=== PATIENT | male | born 1940 | race Caucasian/White ===

== ENCOUNTER 2019-03-24 15:14 | Emergency (ER) | payer OTHER, SELFPAY ==
[2019-03-24 15:18] VITALS: BP 114/73; PULSE 70; RESP 16; TEMP 36.7; O2SAT 98
--- NOTE | 2019-03-24 15:45 | ED.GENADUL_ITS ---
Discharge Plan Disposition Patient Disposition: HOME Condition: Good Discharge Details Chief Complaint: Urinary Clinical Impression: Ureterolithiasis, Hematuria Primary Care Provider: Satya Menendez ED Provider: Stacey Lujan Home Meds and New Rx's Prescriptions: New tamsulosin [Flomax] 0.4 mg capsule 0.4 mg PO DAILY Qty: 7 RF: 0 Continued cyanocobalamin (vitamin B-12) [Vitamin B-12] 1,000 MCG tablet 1,000 mcg PO DAILY Qty: 1 RF: 0 glimpride 4 mg PO DAILY Qty: 1 RF: 0 losartan 50 MG tablet 1 tab PO DAILY Qty: 30 RF: 1 multivitamin [Multi-Day] 1 EACH tablet 1 tab PO DAILY RF: 0 omeprazole 40 MG capsule,delayed release(DR/EC) 1 tab PO DAILY RF: 0 aspirin [Aspir-81] 81 MG tablet,delayed release (DR/EC) 1 tab PO DAILY RF: 0 metformin [Glucophage] 1,000 MG tablet 1 tab PO DAILY RF: 0 gabapentin 300 MG capsule 600 tab PO DAILY RF: 0 metoprolol tartrate 25 MG tablet 1 tab PO DAILY RF: 0 glucosamine sulfate 2KCl 1,000 MG tablet 1 tab PO DAILY RF: 0 No Action rivaroxaban 20 mg Tablet 20 mg PO QPM RF: 0 Discharge Instructions Instructions: Kidney Stones (ED), Hematuria (ED), How to Strain Your Urine (ED) Additional Instructions: Use the strainer to observe when and if you pass the stone. Take the Flomax daily as directed. Hold your Xarelto dose on Thursday night. Call urology Dr. Macias on Thursday to schedule a follow-up appointment for reevaluation. Return to the emergency department if you develop any worsening or new concerning symptoms. Referrals: Rajiv Macias MD [ [facility] STAFF PHYSICIAN] - Discharge Data Discharge Date/Time-TO BE ENTERED AT DEPARTURE: 03/24/19 18:35 Discharge Physician: Stacey Lujan Medical Decision Making 78yo M w/ c/o blood in urine since this morning. Also c/o intermittent L groin pain x several months. Pt on asa and Xarelto. Vitals within normal limits. Appears nontoxic. exam normal. No CVAT. Abdomen nontender. Differential diagoses includes UTI, kidney stone, interstitial cystitis, medication related to anticoagulation. Will place an IV, check screening labs, ua, ct r/o renal stone and give bolus ivf. Pt declining any pain meds at this time. 1700 -- labs and imaging reviewed - WBC and renal function within normal limits. Hgb 12.9. UA notes large blood, negative leukocyte esterase and nitrite. CT notes 3mm L UVJ calculus, mild hydronephrosis. Case d/w Dr. Macias - recommends pt hold his xarelto dose prior to Thursday in case of plan for stent and pt to call their office on Thursday am for follow up. Will send pt home with delilah castillo. He declines narcotic pain meds. Instructed to take tylenol prn pain. Instructed to return to the ER with any worsening symptoms. Medical Records Medical records reviewed: Yes I reviewed the patient's medical records. Imaging Data Radiologic Study: Radiologist's impression: CT Abdomen and Pelvis Without Contrast EXAM DATE/TIME: 03/24/2019 3:51 PM CLINICAL HISTORY: 78 years old, male; Other: Hematuria x this am; Other: Lt groin pain TECHNIQUE: Imaging protocol: Axial computed tomography images of the abdomen and pelvis without contrast. Coronal and sagittal reformatted images were created and reviewed. Radiation optimization: All CT scans at this facility use at least one of these dose optimization techniques: automated exposure control; mA and/or kV adjustment per patient size (includes targeted exams where dose is matched to clinical indication); or iterative reconstruction. COMPARISON: No relevant prior studies available. FINDINGS: Liver: Small cysts. Gallbladder and bile ducts: Normal. No calcified stones. No ductal dilation. Pancreas: No acute findings. No ductal dilation. Spleen: Normal. No splenomegaly. Adrenals: Normal. No mass. Kidneys and ureters: 3 mm calculus at the ureterovesical junction, minimal left hydronephrosis and perinephric edema. Small bilateral renal calculi. Stomach and bowel: Normal. No obstruction. No mucosal thickening. Appendix: No evidence of appendicitis. Intraperitoneal space: Normal. No free air. No significant fluid collection. Vasculature: No abdominal aortic aneurysm. Lymph nodes: No significant adenopathy. Bladder: Unremarkable as visualized. Reproductive: Unremarkable as visualized. Bones/joints: No acute fracture. No dislocation. Soft tissues: Unremarkable. IMPRESSION: 3 mm left UVJ calculus, left hydronephrosis. Bilateral nephrolithiasis. Lab Data Lab results reviewed: Yes I reviewed the patient's lab results. 03/24/19 15:30 Urine - Reflex from Ua Urine Culture - Final Gram Positive [facility] Tests Range/Units 03/24/19 03/24/19 03/24/19 15:30 16:45 16:45 WBC (4.4-10.8) k/cumm 6.95 RBC (4.50-6.00) m/cumm 4.01 L Hgb (13.5-17.5) g/dL 12.9 L Hct (40.0-50.0) % 38.4 L MCV (80-95) fL 95.8 H MCH (27.0-33.0) pg 32.2 MCHC (32.0-36.0) g/dL 33.6 RDW (11.8-14.1) % 12.1 Plt Count (130-400) x1000/uL 203 MPV (8.0-11.0) fL 9.6 Immature Gran % 0.3 Neutrophils % 54.5 Lymphocytes % 31.4 Monocytes % 11.1 Eosinophils % 2.3 Basophils % 0.4 Absolute Neutrophils (1.2-6.7) k/cumm 3.79 Absolute Lymphocytes (1.2-3.4) k/cumm 2.18 Absolute Monocytes (0.11-0.7) k/cumm 0.77 H Absolute Eosinophils (0.0-0.7) k/cumm 0.16 Absolute Basophils (0.0-0.2) k/cumm 0.03 Sodium (136-145) mmol/L 142 Potassium (3.5-5.1) mmol/L 3.8 Chloride (98-107) mmol/L 107 Carbon Dioxide (21.0-32.0) mmol/L 22.5 Anion Gap (3-11) mmol/L 12.5 H BUN (7-18) mg/dL 19 H Creatinine (0.70-1.30) mg/dL 1.12 Estimated GFR/1.73 m2 (mL/min/1.73m2) >= 60.00 Glucose (70-100) mg/dL 94 Calcium (8.5-10.1) mg/dL 9.3 Urine Color (Yellow) Brown Urine Clarity (Clear) Cloudy Urine pH (5-8) 5.5 Ur Specific [place] (1.005-1.025) 1.025 Urine Protein (Negative) mg/dL >=300 H Urine Ketones (Negative) mg/dL Trace H Urine Blood (Negative) Large H Urine Nitrite (Negative) Negative Urine Bilirubin (Negative) Small H Urine Urobilinogen (Up TO 0.2) EU/dL 0.2 Ur Leukocyte Esterase (Negative) Negative Urine RBC (0-2) >50 H Urine WBC Not Applicable Ur Epithelial Cells Not Applicable Urine Crystals Not Applicable Urine Bacteria Not Applicable Urine Mucus Not Applicable Ur Culture Indicated? Yes Urine Glucose (Negative) mg/dL Negative HPI General Mode of arrival: ambulatory . Date/Time Provider Initiated Documentation: 03/24/19 15:18 . Limitations to Documentation: no limitations . Information obtained by: patient . HPI Narrative: Pt is a 78yo M who presents to the ED w/ a c/o blood in urine since this morning. Patient states it was noted to be right red blood and then this afternoon appears brown. Patient denies any fever, nausea, vomiting, abdominal pain, back pain, dysuria, frequency or urgency. He does have intermittent left groin pain for the past several months but denies any at present. He denies any known injury. Patient does take aspirin and Xarelto for his history of cardiac disease/stent placement. Patient states he had been taking Plavix but this was changed to Xarelto 2 years ago. Related Data Home Medications Medication Instructions Recorded Confirmed aspirin [Aspir-81] 1 tab PO DAILY 02/07/16 03/24/19 gabapentin 600 tab PO DAILY 02/07/16 03/24/19 glucosamine sulfate 2KCl 1 tab PO DAILY 02/07/16 03/24/19 metformin [Glucophage] 1 tab PO DAILY 02/07/16 03/24/19 metoprolol tartrate 1 tab PO DAILY 02/07/16 03/24/19 multivitamin [Multi-Day] 1 tab PO DAILY 02/07/16 03/24/19 omeprazole 1 tab PO DAILY 02/07/16 03/24/19 Glimpride 4 mg PO DAILY #1 06/11/16 03/24/19 cyanocobalamin (vitamin B-12) 1,000 mcg PO DAILY #1 06/11/16 03/24/19 [Vitamin B-12] losartan 1 tab PO DAILY #30 tab-cap 06/11/16 03/24/19 rivaroxaban 20 mg PO QPM 03/24/19 03/24/19 tamsulosin [Flomax] 0.4 mg PO DAILY #7 cap 03/24/19 Previous Rx's Medication Instructions Recorded tamsulosin [Flomax] 0.4 mg PO DAILY #7 cap 03/24/19 Allergies Allergy/AdvReac Type Severity Reaction Status Date / Time No Known Allergies Allergy Unverified 03/24/19 15:23 General Stated Complaint: Urinary KAREEM: 3 Review of Systems Review of Systems All systems reviewed & are unremarkable except as noted in HPI and below Constitutional Reports as per HPI, Denies chills and Denies fever(s) Eyes Denies blurry vision ENT Denies dizziness, Denies sore throat and Denies throat swelling Cardiovascular Denies chest pain and Denies dyspnea Respiratory Denies cough and Denies dyspnea Gastrointestinal Denies abdominal pain, Denies diarrhea and Denies vomiting Genitourinary Denies hematuria and Denies dysuria Musculoskeletal Denies back pain and Denies numbness Integumentary/Breasts Denies lesions and Denies rash Neurologic Denies dizziness, Denies focal weakness and Denies numbness Allergic/Immunologic Denies throat swelling PFSH Medical History Diabetes (Chronic) HTN (hypertension) (Chronic) Myocardial infarction (Chronic) Surgical History Appendectomy cardiac stent Cholecystectomy Open Carpal Tunnel release (~2011) Social History Smoking/Tobacco Use Status: Former Tobacco Use Alcohol Intake: current Alcohol Intake frequency: a few times a month Drug use: Never Substance use type: does not use Do you feel safe at home: Yes Do you feel safe in your relationship?: Yes Exam Const General: cooperative, healthy appearing and no acute distress HENMT Head: normal to inspection Face and sinus: normal facial exam Eyes General: appearance normal, both eyes and all related structures Pupils: PERRL EOM: EOM intact bilaterally Neck Neck: normal visual inspection and No submandibular swelling Lymphatic: no lymphadenopathy noted Chest Chest: normal inspection of the chest and no tenderness Resp Effort & Inspection: normal respiratory effort and able to speak in complete sentences Auscultation: clear to auscultation bilaterally Cardio Rate: regular rate Rhythm: regular rhythm GI Inspection: normal to inspection Palpation: soft, not firm, not rigid and nontender Auscultation: normal bowel sounds Male General Exam: Yes normal external exam Penis: normal penis Meatus: meatus normal Scrotum: scrotum normal Testes: normal Back/Spine/Pelvis Back: no CVA tenderness Thoracic/Lumbar Spine: thoracic and lumbar spine normal to inspection Pelvis: no pain with anterior-posterior compression Skin General skin exam: no rashes or lesions noted Neuro General: alert, awake and oriented x3 Cognition: normal cognition Speech: speech normal Motor: muscle tone normal throughout Sensory Exam: no sensory deficits noted Extrem General: normal to inspection, full ROM, normal capillary refill, no calf tenderness bilaterally and no edema Psych Appearance: grossly normal Mental Status: mental status grossly normal Speech and Movement: speech and movement normal Affect: normal affect Course Vital Signs Temperature 98.1 F 03/24/19 15:18 Pulse 70 03/24/19 15:18 Respiratory Rate 16 03/24/19 15:18 Blood Pressure 114/73 03/24/19 15:18 Pulse Oximetry 98 03/24/19 15:18 Temperature 98.1 F 03/24/19 15:18 Temperature Source Skin 03/24/19 15:18 Pulse 70 03/24/19 15:18 Respiratory Rate 16 03/24/19 15:18 Respiratory Effort Non-Labored 03/24/19 15:22 Blood Pressure 114/73 03/24/19 15:18 Blood Pressure Position Sitting 03/24/19 15:18 Pulse Oximetry 98 03/24/19 15:18 Oxygen Delivery Method Room Air 03/24/19 15:18 Oxygen Flow Rate 0 03/24/19 15:18 Pain Level 2 03/24/19 15:37
--- NOTE | 2019-03-24 15:47 | DI.CT_ITS ---
SYMPTOM/DIAGNOSIS: LT GROIN PAIN, HEMATURIA, R/O ACUTE PROCESS RENAL COLIC CT SCAN: No priors. Routine examination was performed. The lung bases are clear. Lack of contrast does limit examination of the abdominal and pelvic organs. There are hypodense lesions seen in the liver. They are too small for further characterization on this noncontrast examination but likely reflects cysts. The gallbladder is negative. There is no biliary ductal dilatation. The unenhanced pancreas, spleen and adrenal glands are unremarkable. There is a 3 mm calculus at the left ureterovesical junction with mild hydronephrosis and hydroureter. There are bilateral nonobstructing stones present. There are cortical hypodensities seen in the kidneys bilaterally likely reflecting cysts. The urinary bladder is intact. The reproductive organs are unremarkable. The abdominal aorta is of normal caliber. No significant abdominal or pelvic adenopathy, ascites or pneumoperitoneum is seen. There is a fat containing left inguinal hernia. The bowel shows no evidence of obstruction or inflammation. The appendix is not visualized but no right lower quadrant inflammatory process is seen. Moderately severe degenerative changes are present in the spine. There is a right convex scoliotic curvature of the lumbar spine. IMPRESSION: 3 mm left UVJ calculus causing mild hydronephrosis.
[2019-03-24 16:07] LABS: Bilirubin Small (Negative); Blood Large (Negative); Clarity Cloudy (Clear); Glucose Negative (Negative); Ketones Trace mg/dL (Negative); Leukocyte Esterase Negative (Negative); Nitrite Negative (Negative); Specific Gravity 1.025 (1.005-1.025); Urobilinogen 0.2 EU/dL (Up TO 0.2); pH 5.5 (5-8)
--- NOTE | 2019-03-24 16:22 | DI.VRAD_ITS ---
EXAM: CT Abdomen and Pelvis Without Contrast EXAM DATE/TIME: 03/24/2019 3:51 PM CLINICAL HISTORY: 78 years old, male; Other: Hematuria x this am; Other: Lt groin pain TECHNIQUE: Imaging protocol: Axial computed tomography images of the abdomen and pelvis without contrast. Coronal and sagittal reformatted images were created and reviewed. Radiation optimization: All CT scans at this facility use at least one of these dose optimization techniques: automated exposure control; mA and/or kV adjustment per patient size (includes targeted exams where dose is matched to clinical indication); or iterative reconstruction. COMPARISON: No relevant prior studies available. FINDINGS: Liver: Small cysts. Gallbladder and bile ducts: Normal. No calcified stones. No ductal dilation. Pancreas: No acute findings. No ductal dilation. Spleen: Normal. No splenomegaly. Adrenals: Normal. No mass. Kidneys and ureters: 3 mm calculus at the ureterovesical junction, minimal left hydronephrosis and perinephric edema. Small bilateral renal calculi. Stomach and bowel: Normal. No obstruction. No mucosal thickening. Appendix: No evidence of appendicitis. Intraperitoneal space: Normal. No free air. No significant fluid collection. Vasculature: No abdominal aortic aneurysm. Lymph nodes: No significant adenopathy. Bladder: Unremarkable as visualized. Reproductive: Unremarkable as visualized. Bones/joints: No acute fracture. No dislocation. Soft tissues: Unremarkable. IMPRESSION: 3 mm left UVJ calculus, left hydronephrosis. Bilateral nephrolithiasis. Dictated and Authenticated by: Mark Singleton MD. Ordering:JESUS Ibarra MD
[2019-03-24 16:34] LABS: RBC >50 (0-2)
[2019-03-24 16:35] LABS: C & S Indicated? Yes
[2019-03-24] MEDS: Normal Saline 500 ML IV (16:45)
[2019-03-24 17:31] LABS: Anion Gap 12.5 mmol/L (3-11); BUN 19 mg/dL (7-18); CO2 22.5 mmol/L (21.0-32.0); CREATININE 1.12 mg/dL (0.70-1.30); Calcium 9.3 mg/dL (8.5-10.1); Chloride 107 mmol/L (98-107); Glucose 94 mg/dL (70-100); Potassium 3.8 mmol/L (3.5-5.1); Sodium 142 mmol/L (136-145)
[2019-03-24 17:40] LABS: Abs Immature Grans 0.02 k/cumm (0.0-0.09); Absolute Basophil Count 0.03 k/cumm (0.0-0.2); Absolute Eosinophil Count 0.16 k/cumm (0.0-0.7); Absolute Lymphocyte Count 2.18 k/cumm (1.2-3.4); Absolute Monocyte Count 0.77 k/cumm (0.11-0.7); Absolute Neutrophil Count 3.79 k/cumm (1.2-6.7); Basophils % 0.4; Eosinophils % 2.3; HCT 38.4 % (40.0-50.0); HGB 12.9 g/dL (13.5-17.5); Immature Grans % 0.3; Lymphocytes % 31.4; Mean Corp. HGB Concentration 33.6 g/dL (32.0-36.0); Mean Corpuscular Hemoglobin 32.2 pg (27.0-33.0); Mean Corpuscular Volume 95.8 fL (80-95); Mean Platelet Volume 9.6 fL (8.0-11.0); Monocytes % 11.1; Neutrophils % 54.5; Platelet Count 203 x1000/uL (130-400); RBC 4.01 m/cumm (4.50-6.00); RBC Distribution Width 12.1 % (11.8-14.1); White Blood Cell Count 6.95 k/cumm (4.4-10.8)
[2019-03-24 17:55] VITALS: BP 133/81; PULSE 63; RESP 18; TEMP 36.6; O2SAT 98
--- NOTE | 2019-03-24 17:58 | NUR.NOTE ---
patient sitting comfortably, IV site wnlNursing Note:
--- NOTE | 2019-03-24 18:16 | NUR.NOTE ---
Nursing Note: [facility], Dr. Macias for follow up. Consulted with Dr. Macias about this pt. Carmen Nolan.
[2019-03-24] MEDS: Tamsulosin 0.4 MG CAPCR PO (18:26)
[2019-03-24 18:35] VITALS: BP 133/81; PULSE 63; RESP 18; TEMP 36.6; O2SAT 98
== END 2019-03-24 18:35 | disposition home or self-care (01) ==
PROVIDERS: Emergency Provider Physician Assistant; PCP Family Medicine
DX: R31.9 Hematuria, unspecified (principal); N20.1 Calculus of ureter; R10.32 Left lower quadrant pain; Z79.01 Long term (current) use of anticoagulants; Z95.5 Presence of coronary angioplasty implant and graft; I25.10 Atherosclerotic heart disease of native coronary artery without angina pectoris; E11.9 Type 2 diabetes mellitus without complications; Z79.84 Long term (current) use of oral hypoglycemic drugs; I10 Essential (primary) hypertension
CPT/HCPCS: 36415; 80048; 96360; 99284; 74176; 81003; 81015; 85025; 87086; 99285

== ENCOUNTER 2019-11-18 09:27 | Outpatient (CLI) | payer OTHER, SELFPAY ==
[2019-11-18 12:22] LABS: Calculated LDL 88 mg/dL (<100); Cholesterol 158 mg/dL (<200); HDL Cholesterol 36 mg/dL (40-60); Triglyceride 173 mg/dL (<150)
[2019-11-18 12:35] LABS: Hemoglobin A1C 6.9 % (3.8-5.6)
== END 2019-11-18 09:47 ==
PROVIDERS: PCP Family Medicine; Visit Provider Family Medicine
DX: E78.5 Hyperlipidemia, unspecified (principal); R73.9 Hyperglycemia, unspecified
CPT/HCPCS: 36415; 80061; 83036

== ENCOUNTER 2020-02-20 18:58 | Emergency (ER) | payer OTHER, SELFPAY ==
[2020-02-20 19:04] VITALS: BP 163/67; PULSE 70; RESP 18; TEMP 36.7; O2SAT 94
--- NOTE | 2020-02-20 19:46 | W.ED.GENAD ---
Discharge Plan Disposition Patient Disposition: HOME Condition: Stable Discharge Details Chief Complaint: RashLesion Clinical Impression: Tick bite Primary Care Provider: Satya Menendez ED Provider: Tyshawn Montez Home Meds and New Rx's Prescriptions: New doxycycline hyclate 100 mg tablet 200 mg PO ONCE Qty: 2 RF: 0 Continued magnesium oxide 500 mg capsule 500 mg PO BID Qty: 180 RF: 3 niacin 100 mg tablet 100 mg PO DAILY RF: 0 cyanocobalamin (vitamin B-12) [Vitamin B-12] 1,000 MCG tablet 1,000 mcg PO DAILY Qty: 1 RF: 0 glimepiride 4 mg tablet 4 mg PO BID Qty: 180 RF: 3 losartan 50 mg tablet 50 mg PO DAILY Qty: 90 RF: 3 metformin [Glucophage] 1,000 mg tablet 1,000 mg PO BID Qty: 180 RF: 3 metoprolol tartrate 25 mg tablet 25 mg PO BID Qty: 180 RF: 3 omeprazole 20 mg capsule,delayed release(DR/EC) 20 mg PO DAILY Qty: 90 RF: 3 rivaroxaban 20 mg tablet 20 mg PO QPM Qty: 90 RF: 3 (DME) blood sugar diagnostic [OneTouch Ultra Blue Test Strip] Strip See Rx Instructions .ROUTE .MEDSUPPLY Qty: 100 RF: 3 glucosamine sulfate 2KCl 1,000 MG tablet 1 tab PO DAILY RF: 0 Discharge Instructions Instructions: Tick Bite (ED) Additional Instructions: Doxycycline as directed. Keep the area clean and dry, you may apply antibiotic ointment. Please watch for new or worsening symptoms and return to the ER for any concerns. I do recommend that you contact your primary care provider tomorrow for prompt outpatient reevaluation Discharge Data Discharge Date/Time-TO BE ENTERED AT DEPARTURE: 02/20/20 20:00 Medical Decision Making Patient presents with what appears to be a dog tick stuck to his upper scrotum. Otherwise asymptomatic. Able to easily remove the entire tick including jaw using the tick remover tool. Discussed the case with Dr. Arango, will give a single one-time dose of 200 mg p.o. doxycycline. Patient comfortable this plan and has no additional questions or concerns. Medical Records Medical records reviewed: Yes I reviewed the patient's medical records. HPI General Mode of arrival: ambulatory. Date/Time Provider Initiated Documentation: 02/20/20 19:29. Limitations to Documentation: no limitations. Information obtained by: patient. HPI Narrative: 79-year-old gentleman with history of diabetes, hypertension, [place], cardiac stent, anticoagulation, presents for potential tick bite to his left groin. He noticed something on his upper scrotum over the past 4 days, initially thought it was a skin tag but then today noticed legs. He denies fever, skin rash, body aches. No additional questions or concerns. Denies pain or altered sensation. No urinary complaints Related Data Home Medications Medication Instructions Recorded Confirmed glucosamine sulfate 2KCl 1 tab PO DAILY 02/07/16 02/20/20 cyanocobalamin (vitamin B-12) 1,000 mcg PO DAILY #1 06/11/16 02/20/20 [Vitamin B-12] niacin 100 mg tablet 100 mg PO DAILY 05/17/19 02/20/20 glimepiride 4 mg tablet 4 mg PO BID #180 tab 07/01/19 02/20/20 losartan 50 mg tablet 50 mg PO DAILY #90 tab-cap 07/01/19 02/20/20 metformin 1,000 mg tablet 1,000 mg PO BID #180 tab 07/01/19 02/20/20 metoprolol tartrate 25 mg tablet 25 mg PO BID #180 tab 07/01/19 02/20/20 omeprazole 20 mg capsule,delayed 20 mg PO DAILY #90 cap 07/01/19 02/20/20 release rivaroxaban 20 mg tablet 20 mg PO QPM #90 tab 09/28/19 02/20/20 magnesium oxide 500 mg capsule 500 mg PO BID #180 cap 10/04/19 02/20/20 blood sugar diagnostic #100 each 10/24/19 02/20/20 doxycycline hyclate 200 mg PO ONCE #2 tab 02/20/20 Previous Rx's Medication Instructions Recorded glimepiride 4 mg tablet 4 mg PO BID #180 tab 07/01/19 losartan 50 mg tablet 50 mg PO DAILY #90 tab-cap 07/01/19 metformin 1,000 mg tablet 1,000 mg PO BID #180 tab 07/01/19 metoprolol tartrate 25 mg tablet 25 mg PO BID #180 tab 07/01/19 omeprazole 20 mg capsule,delayed 20 mg PO DAILY #90 cap 07/01/19 release rivaroxaban 20 mg tablet 20 mg PO QPM #90 tab 09/28/19 magnesium oxide 500 mg capsule 500 mg PO BID #180 cap 10/04/19 blood sugar diagnostic #100 each 10/24/19 doxycycline hyclate 200 mg PO ONCE #2 tab 02/20/20 Allergies Allergy/AdvReac Type Severity Reaction Status Date / Time gabapentin AdvReac Severe Severe Verified 02/20/20 19:08 confusion Eixwhfu-Vnv-Cyd Reductase AdvReac Severe Muscle and Verified 02/20/20 19:08 Inhibitor joint pain tetanus and diphtheria AdvReac Severe Confused Verified 02/20/20 19:08 toxoids General Stated Complaint: RashLesion KAREEM: 4 Review of Systems Constitutional Constitutional: Denies fatigue, Denies fever(s) and Denies weakness Cardiovascular Cardiovascular: Denies chest pain and Denies dyspnea Respiratory Respiratory: Denies cough and Denies dyspnea Gastrointestinal Gastrointestinal: Denies abdominal pain, Denies nausea and Denies vomiting Genitourinary Genitourinary: Denies genital pain, Denies dysuria and Denies testicular pain Musculoskeletal Musculoskeletal: Denies numbness and Denies tingling Integumentary/Breasts Skin/Breast: Denies rash Neurologic Neurologic: Denies numbness, Denies tingling and Denies weakness Endocrine Endocrine: Denies fatigue Hematologic/Lymphatic Hematologic/Lymphatic: Reports easy bleeding and Reports easy bruising [facility] Medical History Diabetes (Chronic) Diabetic neuropathy, type II diabetes mellitus (Acute) HTN (hypertension) (Chronic) Leg cramps (Acute) Myocardial infarction (Chronic) Surgical History Appendectomy cardiac stent Cholecystectomy Open Carpal Tunnel release (~2011) Family History Mother No problems noted. Father No problems noted. Son No problems noted. Son No problems noted. Social History Smoking/Tobacco Use Status: Former Tobacco Use Tobacco: How many years used: 50 Alcohol Intake: current Alcohol Intake frequency: a few times a month Alcohol type: beer and hard liquor Drug use: Never Substance use type: does not use Caregiver/Support person: Yes Household members: spouse Housing: house Communication Needs: Hard of Hearing Do you need help understanding health information?: Often Pets and animals: No Sexually active: Yes Do you think of yourself as: straight/heterosexual Current gender identity: male What is your relationship status?: How often do you talk on the phone with friends or family?: once per week How often do you get together with friends or relatives?: once per week How often do you attend yazdanism or hoahaoism services?: decline to answer Do you belong to any clubs or organized social groups?: yes Panel score (0-1 are the most socially isolated patients): 2 What type of physical activity do you participate in: decline to answer Duration: decline to answer Frequency: decline to answer Kady/Yazdanism: Zoroastrianism Special kady needs: No Seatbelt use: always Do you feel safe at home: Yes Do you feel safe in your relationship?: Yes Exam Const General: cooperative, healthy appearing, comfortable and no acute distress Orientation: alert and awake HENMT Head: normal to inspection, normocephalic and atraumatic Mouth: moist mucous membranes Eyes Conjunctivae: conjunctivae normal Neck Neck: normal visual inspection, trachea midline and supple Resp Effort & Inspection: normal respiratory effort and able to speak in complete sentences Cardio Rate: regular rate Rhythm: regular rhythm GI Palpation: soft and nontender Male genitals images: 1. Appears to be an engorged, intact dog tick. No erythema. No drainage. Skin General skin exam: no rashes or lesions noted Neuro General: patient alert, patient awake, moves all extremities and no focal motor deficits Sensory Exam: no sensory deficits noted Psych Appearance: grossly normal Mental Status: mental status grossly normal Course Vital Signs Vital signs: Vital Signs Temperature 36.7 C 02/20/20 19:04 Pulse 70 02/20/20 19:04 Respiratory Rate 18 02/20/20 19:04 Blood Pressure 163/67 H 02/20/20 19:04 Pulse Oximetry 94 L 02/20/20 19:04 Temperature 36.7 C 02/20/20 19:04 Temperature Source Temporal Artery Scan 02/20/20 19:04 Pulse 70 02/20/20 19:04 Respiratory Rate 18 02/20/20 19:04 Respiratory Effort Non-Labored 02/20/20 19:08 Blood Pressure 163/67 H 02/20/20 19:04 Blood Pressure Position Sitting 02/20/20 19:04 Pulse Oximetry 94 L 02/20/20 19:04 Oxygen Delivery Method Room Air 02/20/20 19:04 Oxygen Flow Rate 0 02/20/20 19:04 Pain Level 0 02/20/20 19:04
[2020-02-20 20:01] VITALS: BP 163/67; PULSE 70; RESP 18; TEMP 36.7; O2SAT 94
[2020-02-20] MEDS: Doxycycline Hyclate 100 MG CAP (20:01)
== END 2020-02-20 20:00 | disposition home or self-care (01) ==
PROVIDERS: Emergency Provider Physician Assistant; PCP Family Medicine
DX: S30.863A Insect bite (nonvenomous) of scrotum and testes, initial encounter (principal); W57.XXXA Bitten or stung by nonvenomous insect and other nonvenomous arthropods, initial encounter
CPT/HCPCS: 99283

== ENCOUNTER → 2020-05-22 08:59 | Outpatient (BNVA) | payer OTHER, SELFPAY | PROVIDERS: PCP Family Medicine; Referring Provider Family Medicine; Visit Provider Surgery | DX: K40.90 Unilateral inguinal hernia, without obstruction or gangrene, not specified as recurrent (principal); I20.8 Other forms of angina pectoris; I48.0 Paroxysmal atrial fibrillation; Z11.59 Encounter for screening for other viral diseases; E11.42 Type 2 diabetes mellitus with diabetic polyneuropathy; I10 Essential (primary) hypertension | CPT/HCPCS: 99202; 99214 ==

== ENCOUNTER 2020-06-01 07:47 | Outpatient (CLI) | payer OTHER, SELFPAY ==
[2020-06-03 02:22] LABS: COVID-19 RT-PCR Result NEGATIVE (Negative)
== END 2020-06-01 08:07 ==
PROVIDERS: PCP Family Medicine; Visit Provider Surgery
DX: Z11.59 Encounter for screening for other viral diseases (principal); Z01.818 Encounter for other preprocedural examination
CPT/HCPCS: U0003

== ENCOUNTER 2020-06-06 08:51 | Day surgery (SDC) | payer OTHER, SELFPAY ==
--- NOTE | 2020-06-06 07:04 | ROE_ITS ---
Date of service: 06/06/20 Time of Service: 11:33 Operative Note Operative Note DATE OF PROCEDURE: 06/06/20 PRE-OP DIAGNOSIS: Left inguinal hernia POST-OP DIAGNOSIS: other (Direct and indirect hernia) PROCEDURE: left inguinal hernia repair with mesh SURGEON: Lorena Coronel MANUFACTURER REPRESENTATIVE: Dana Thomas ANESTHESIA: MAC (ASA 2/ Clem Novak CRNA) and regional ESTIMATED BLOOD LOSS: 25 PATHOLOGY: none sent COMPLICATIONS: None Patient was transported to: PACU Patient's condition: stable Implants: BARD Mesh LOT- [id number] REF- [id number] EXP 2024-10-04 Indications: 79 year old male with a reducible left inguinal hernia Reviewed anatomy and procedure P\\ Left inguinal hernia repair with mesh Risks, benefits and complications have been reviewed. Complications include but are not limited to bleeding, pain, infection, injury to underlying structures like bowel and adverse reaction to the medication. Questions were entertained and answered to their satisfaction and they wished to proceed. No guarantees were given or implied. Findings: Moderate sized indirect hernia and small directa hernia Procedure Description: After informed consent was obtained the patient was taken to the operating room and placed in a supine position. Monitors and SCDs were applied and a timeout was done. The patient's name, date of , procedure type, procedure site, allergies to medications, preoperative antibiotic, and DVT prophylaxis were all reviewed. Fire risk was assessed. Next anesthesia did a tap block on the left side under ultrasound guidance. Please see their separate documentation. Once anesthesia was done the abdomen was prepped and draped in a sterile surgical fashion. 1% lidocaine was injected into the dermis in the left lower quadrant. An incision was made with a 10 blade in the left lower quadrant. Dissection was done with cautery through the subcutaneous tissues and Cesar's fascia down to the external oblique fascia. The external ring was identified and the external oblique fascia was opened sharply through the external ring. The cut fascia was grasped with hemostats the cord structures were identified and a Holland drain was placed around them. The cremasteric muscle was dissected away from the cord structures using both cautery and blunt dissection. A hernia sac was identified and removed from the cord structures using blunt dissection. The hernia sac was opened. No bowel was within the hernia sac. The sac was then suture ligated and amputated. The remnant was pushed back into the peritoneum. There was a large tail of pre-peritoneal fat that was transected with cautery. What was left was reduced. A small direct hernia was identified. The ilio-inguinal nerve was identified and cut. A 6 x 6 piece of mesh was then cut in half. One half was cut into thirds and a plug was created. The plug was placed into the indirect defect and sutured to the internal oblique. The other half of the mesh was cut to size and attached to the lacunar ligament using a 2- 0 Prolene double armed suture. The mesh was secured laterally and medially with a 2-0 Prolene, with a running suture. The tails of the mesh were wrapped around the cord structures effectively cinching down the internal ring. Once the mesh was secured the tissues were irrigated with some normal saline. No bleeding was identified. The external oblique fascia was re-approximated using 2-0 Vicryl running suture. The Cesar's fascia was re-approximated using interrupted 3-0 Vicryl. The dermis was re-approximated with a running 4-0 Vicryl. The skin was cleaned and dried and skin affix was applied. The patient was woken up and taken back to recovery in stable condition. There were no immediate complications. Sponge, instrument and needle counts were correct at the end of the case x2.
--- NOTE | 2020-06-06 07:07 | W.PM.DSUDISC ---
Discharge Plan Disposition Patient Disposition: HOME Condition: Good Discharge Details Reason For Visit: Left inguinal hernia Attending Provider: Lorena Coronel Primary Care Provider: Satya Menendez Home Meds and New Rx's Prescriptions: New acetaminophen [Tylenol] 325 mg capsule 650 mg PO Q6H PRNQty: 30 RF: 0 Continued magnesium oxide 500 mg capsule 500 mg PO BID Qty: 180 RF: 3 niacin 100 mg tablet 100 mg PO DAILY RF: 0 cyanocobalamin (vitamin B-12) [Vitamin B-12] 1,000 MCG tablet 1,000 mcg PO DAILY Qty: 1 RF: 0 glimepiride 4 mg tablet 4 mg PO BID Qty: 180 RF: 3 losartan 50 mg tablet 50 mg PO DAILY Qty: 90 RF: 3 metformin [Glucophage] 1,000 mg tablet 1,000 mg PO BID Qty: 180 RF: 3 metoprolol tartrate 25 mg tablet 25 mg PO BID Qty: 180 RF: 3 omeprazole 20 mg capsule,delayed release(DR/EC) 20 mg PO DAILY Qty: 90 RF: 3 rivaroxaban 20 mg tablet 20 mg PO QPM Qty: 90 RF: 3 (DME) OneTouch Ultra Blue Test Strip Strip See Rx Instructions .ROUTE .MEDSUPPLY Qty: 100 RF: 3 glucosamine sulfate 2KCl 1,000 MG tablet 1 tab PO DAILY RF: 0 diphenhydramine-acetaminophen [Acetaminophen PM] 25-500 mg Tablet 2 tab PO HS PRNRF: 0 Discharge Instructions Additional Instructions: Activity at Home after surgery: 1. Make sure you walk outside at least 4 times per day 2. You should be able to climb a flight of stairs 3. No driving while in pain or taking pain medications 4. No strenuous activity or heavy lifting for 4 weeks Diet, Nutrition, & wound healin. Avoid alcohol until after you are recovered from your surgery 2. Make sure to eat plenty of lean protein (meat, fish, eggs, cottage cheese, beans) 3. Eat a variety of fruits and vegetables. Eat plenty of high fiber foods to avoid constipation. 4. Drink plenty of liquids to stay hydrated and avoid constipation Pain Medications: 1. Tylenol 650 mg every 6 hours 2. If a narcotic has been prescribed take as directed only for breakthrough pain For Constipation: 1. Take Milk of Magnesia or MiraLax as needed for constipation Home medications: Restart Rivaroxaban tomorrow morning Other: 1. You may shower daily. Do not scrub the incisions 2. Do not soak the incisions for 1 week 3. You may alternate ice and heat as needed for pain and swelling Wound Care: 1. Keep the incisions clean and dry Please call our office if you develop: 1. Fevers >101.5 2. Nausea or Vomiting 3. Worsening pain 4. Redness and thick discharge from the wounds If after hours please call the Hospital at and ask to speak to the on-call surgeon Referrals: Lorena Coronel MD [ [facility] STAFF PHYSICIAN] - Activity:: No lifting >20 lb x 4 weeks Remove Dressings/Wound Care:: Do Not Remove Shower/Bathe:: 24 hours Diet:: As Tolerated Discharge Orders Discharge Orders: Discharge Order (Routine); Ordered 06/06/20 Ordered By: Lorena Coronel
[2020-06-06 09:40] VITALS: BP 142/90; PULSE 55; RESP 14; TEMP 36.6; O2SAT 99
[2020-06-06] MEDS: Celecoxib 200 MG CAP PO (09:46)
[2020-06-06] MEDS: Acetaminophen 500 MG TAB 1000 MG PO (09:46)
[2020-06-06] MEDS: Lactated Ringers 1,000 ML 80 ML IV (10:00)
[2020-06-06] MEDS: ceFAZolin 2 GM/50 ML BAG IVPB (10:22)
[2020-06-06] MEDS: Bupivacaine LIPOSOME/PF 133 MG/10 ML VIAL IJ (10:30)
[2020-06-06] MEDS: Bupivacaine 0.25% Pres-Free 30 ML VIAL (10:30)
[2020-06-06] MEDS: Lidocaine 1% Multi-Dose 50 ML VIAL (10:53)
[2020-06-06 11:47] VITALS: BP 100/61; PULSE 59; RESP 16; TEMP 36.4; O2SAT 95
[2020-06-06 11:52] VITALS: BP 106/60; PULSE 60; RESP 15; TEMP 36.5; O2SAT 95
[2020-06-06 11:57] VITALS: BP 121/71; PULSE 61; RESP 18; TEMP 36.5; O2SAT 97
[2020-06-06 12:12] VITALS: BP 109/78; PULSE 58; RESP 15; TEMP 36.5; O2SAT 96
[2020-06-06 12:58] VITALS: BP 111/73; PULSE 58; RESP 16; TEMP 36; O2SAT 98
== END 2020-06-06 13:42 | disposition home or self-care (01) ==
LOC: SUR 08:51
PROVIDERS: PCP Family Medicine; Visit Provider Surgery
PROC: (CPT 49505; principal; 2020-06-06 10:15)
DX: K40.90 Unilateral inguinal hernia, without obstruction or gangrene, not specified as recurrent (principal); G89.18 Other acute postprocedural pain; I20.8 Other forms of angina pectoris; I48.91 Unspecified atrial fibrillation
CPT/HCPCS: 49505; 76942; C1781; J0690; J1100; J2405; J2704

== ENCOUNTER 2020-11-21 11:42 | Outpatient (CLI) | payer OTHER, SELFPAY ==
[2020-11-21 12:56] LABS: CREATININE 1.1 mg/dL (0.70-1.30); Hemoglobin A1C 6.8 % (<5.7); Potassium 4.1 mmol/L (3.5-5.1)
== END 2020-11-21 11:43 | disposition home or self-care (01) ==
LOC: LOS 11:42
PROVIDERS: PCP Family Medicine; Visit Provider Family Medicine
DX: I10 Essential (primary) hypertension (principal); R73.9 Hyperglycemia, unspecified
CPT/HCPCS: 36415; 82565; 83036; 84132

== ENCOUNTER 2021-05-20 14:27 | Outpatient (REF) | payer OTHER, SELFPAY ==
[2021-05-20 22:02] LABS: Absolute Basophil Count 0.06 10^3/uL (0.0-0.2); Absolute Eosinophil Count 0.39 10^3/uL (0.0-0.7); Absolute Lymphocyte Count 2.38 10^3/uL (1.2-3.4); Absolute Monocyte Count 0.83 10^3/uL (0.1-0.8); Absolute Neutrophil Count 3.05 10^3/uL (1.2-6.7); Basophils % 0.9; Eosinophils % 5.7; HCT 40.5 % (40.0-50.0); HGB 12.8 g/dL (13.5-17.5); Immature Grans % 1.5; Lymphocytes % 34.9; MCH 31.4 pg (27.0-33.0); MCHC 31.6 % (32.0-36.0); MCV 99.5 fL (80-95); MPV 9.9 fL (8.0-11.0); Monocytes % 12.2; Neutrophils % 44.8; Nucleated RBC 0 %; Platelet Count 207 10^3/uL (130-400); RBC 4.07 10^6/uL (4.36-5.78); RDW-SD 43.8 fL; WBC 6.81 10^3/uL (4.4-10.8)
[2021-05-20 22:23] LABS: ALT 24 U/L (16-63); AST 15 U/L (15-37); Albumin 4.1 g/dL (3.4-5.0); Alkaline Phosphatase 73 U/L (46-116); BUN 22 mg/dL (7-18); Bilirubin, Total 0.5 mg/dL (0.2-1.0); CREATININE 1.3 mg/dL (0.70-1.30); Calcium 8.8 mg/dL (8.5-10.1); Calculated LDL 89 mg/dL (<100); Chloride 106 mmol/L (98-107); Cholesterol 157 mg/dL (<200); Estimated GFR 53.39 (mL/min/1.73m2); Glucose 103 mg/dL (74-106); HDL Cholesterol 38 mg/dL (40-60); Potassium 4.6 mmol/L (3.5-5.1); Sodium 143 mmol/L (136-145); Total Protein 7.3 g/dL (6.4-8.2); Triglyceride 150 mg/dL (<150)
== END 2021-05-20 14:28 | disposition home or self-care (01) ==
LOC: NCHCN 14:27
PROVIDERS: Visit Provider Nurse Practitioner Family
DX: E11.40 Type 2 diabetes mellitus with diabetic neuropathy, unspecified (principal); I10 Essential (primary) hypertension; I25.10 Atherosclerotic heart disease of native coronary artery without angina pectoris
CPT/HCPCS: 80053; 80061; 83036; 85025

== ENCOUNTER 2021-07-02 10:14 | Outpatient (REF) | payer MEDICARE, SELFPAY ==
[2021-07-02 20:01] LABS: HCT 42.7 % (40.0-50.0); HGB 13.6 g/dL (13.5-17.5); MCH 31.4 pg (27.0-33.0); MCHC 31.9 % (32.0-36.0); MCV 98.6 fL (80-95); Platelet Count 205 10^3/uL (130-400); RBC 4.33 10^6/uL (4.36-5.78); RDW-SD 43.4 fL; WBC 5.57 10^3/uL (4.4-10.8)
== END 2021-07-02 10:15 | disposition home or self-care (01) ==
LOC: NCHCN 10:14
PROVIDERS: Visit Provider Nurse Practitioner Family
DX: D64.9 Anemia, unspecified (principal)
CPT/HCPCS: 85027

== ENCOUNTER 2022-06-19 11:34 | Emergency (ER) | payer BC, SELFPAY ==
[2022-06-19 11:38] VITALS: BP 142/82; PULSE 63; RESP 20; TEMP 36.4; O2SAT 99
--- NOTE | 2022-06-19 12:00 | DI.CT_ITS ---
Exam(s) CT ABDOMEN PELVIS W EXAM: CT ABDOMEN PELVIS W CLINICAL HISTORY: left flank pain TECHNIQUE: Imaging Protocol: Axial computed tomography images with coronal and sagittal reformatted images were created and reviewed CONTRAST MATERIAL: Intravenous: Omnipaque 350 Contrast volume:100 mL Oral: No COMPARISON: CT CT renal colic wo from 03/24/2019 FINDINGS: ABDOMEN: Lung Bases: Coronary artery calcifications. Mild cardiomegaly. There is a small hiatal hernia. Liver: Normal density. There are 2 tiny hypodensities in the liver. They are too small for further c haracterization but likely reflect small cysts. No suspicious hepatic masses are seen. Portal, Superior Mesenteric, and Splenic Veins: Unremarkable. Gallbladder and Biliary Tract: No radiodense calculus or dilation. Pancreas: Normal density, no abnormal calcifications or inflammatory process. Spleen: Normal. Adrenals: No masses seen. Kidneys: Normal size, contour and axis. There is bilateral nephrolithiasis. No ureterolithiasis or h ydronephrosis. There are bilateral simple renal cysts. No follow-up is recommended. Abdominal Aorta: Abdominal portion non-dilated. Atherosclerosis. Bowel: No obstruction or bowel wall thickening. No evidence of appendicitis. There are few scattered diverticula in the distal colon, but no evidence of acute diverticulitis. Peritoneal Cavity: No ascites, collection or mesenteric inflammatory response. No free air. Lymph Nodes: Within normal limits. Bones: Within normal limits for the patient's age. There is a right convex scoliosis. Soft Tissues: There are findings of a prior left inguinal hernia repair. There is a fat containing r ight inguinal hernia. PELVIS: Bladder: Symmetric distention, no gross wall thickening. Reproductive Organs: Prostate gland is mildly enlarged. Lymph Nodes: Within normal limits. Bones: Within normal limits for the patient's age. IMPRESSION: 1. Bilateral nephrolithiasis. No evidence of hydronephrosis or ureterolithiasis. 2. No acute abdominal process. 3. Colonic diverticulosis, but no evidence of acute diverticulitis. 4. Findings were discussed with Gifty Muniz at 2:37 p.m. on 06/19/2022. RADIATION DOSE DELIVERED: 1,034.98mGy.cm Total DLP DATA REPOSITORY: All CT scans at this facility are submitted to the National Radiology Data Registry (NRDR) Dose Index Registry (DIR) with the [employer] (A[employer]). RADIATION OPTIMIZATION: All CT scans at this facility use at least one of these dose optimization te chniques: automated exposure control; mA and/or kV adjustment per patient size (includes targeted exa ms where dose is matched to clinical indication); or iterative reconstruction.
--- NOTE | 2022-06-19 12:08 | W.ED.GENAD ---
Discharge Plan Disposition Patient Disposition: HOME Condition: Stable Discharge Details Clinical Impression: Acute flank pain Primary Care Provider: Unknown,Unknown ED Provider: Gifty Muniz Home Meds and New Rx's Prescriptions: Continued nine-eleven 1 tab PO BID Label Comments: for cramping of lower legs. cyanocobalamin (vitamin B-12) [Vitamin B-12] 1,000 MCG tablet 1,000 mcg PO DAILY Qty: 1 glimepiride 4 mg tablet 4 mg PO BID Qty: 180 3RF losartan 50 mg tablet 50 mg PO DAILY Qty: 90 3RF metformin [Glucophage] 1,000 mg tablet 1,000 mg PO BID Qty: 180 3RF metoprolol tartrate 25 mg tablet 25 mg PO BID Qty: 180 3RF omeprazole 20 mg capsule,delayed release(DR/EC) 20 mg PO DAILY Qty: 90 3RF rivaroxaban 20 mg tablet 20 mg PO QPM Qty: 90 3RF Label Comments: pt. states he did not take thursday and thursday (DME) OneTouch Ultra Blue Test Strip Strip See Rx Instructions .ROUTE .MEDSUPPLY Qty: 100 3RF Label Comments: pt. states he tests it every couple of weeks Rx Instructions: test once/day glucosamine sulfate 2KCl 1,000 MG tablet 1 tab PO DAILY diphenhydramine-acetaminophen [Acetaminophen PM] 25-500 mg Tablet 2 tab PO HS PRN acetaminophen [Tylenol] 325 mg capsule 650 mg PO Q6H PRNQty: 30 0RF vardenafil 5 mg Tablet 5 mg PO DIRECTED PRN magnesium oxide 500 mg capsule 250 - 500 mg PO DIRECTED Rx Instructions: 250mg qam 500mg qpm Discharge Instructions Additional Instructions: Take Tylenol 650 mg every 4-6 hours as needed for pain, do not exceed 3 g daily Return with worsening pain, fever, chills, or should you have new or worsening complaints You have stones in your kidney but not in her ureter and that should not cause discomfort Please follow-up with your urologist You may strain your urine Referrals: Rajiv Macias MD [ [facility] STAFF PHYSICIAN] - Discharge Data Discharge Date/Time-TO BE ENTERED AT DEPARTURE: 06/19/22 15:16 Medical Decision Making Patient appears well, CT does not show evidence of obstructive uropathy, there is nephrolithiasis per radiology interpretation my review He is referred back to Dr. Macias His urinalysis is not positive for infection He is discharged home in stable condition with stable vitals Return precautions discussed and patient expressed understanding Medical Records Medical records reviewed: Yes I reviewed the patient's medical records. Lab Data Lab results reviewed: Yes I reviewed the patient's lab results. HPI General Date/Time Provider Initiated Documentation: 06/19/22 11:55. HPI Narrative: This 81-year-old gentleman presents with left flank pain. He states he thinks he passed a stone last week as he had hematuria and flank pain, however he has returned which is why he presents for evaluation. describes pain as sharp and denies known exacerbating or alleviating factors he denies any fever or chills. He denies any chest pain or shortness of breath. He denies any nausea or vomiting. He has had 2 prior stents in the past. He describes the pain as sharp. Related Data Home Medications Medication Instructions Recorded Confirmed glucosamine sulfate 2KCl 1,000 mg 1 tab PO DAILY 02/07/16 06/19/22 tablet cyanocobalamin (vitamin B-12) 1,000 mcg PO DAILY ##1 06/11/16 06/19/22 1,000 mcg tablet (Vitamin B-12) diphenhydramine 25 2 tab PO HS PRN 06/05/20 06/19/22 mg-acetaminophen 500 mg tablet (Acetaminophen PM) acetaminophen 325 mg capsule 650 mg PO Q6H PRN #30 caps 06/06/20 06/19/22 (Tylenol) glimepiride 4 mg tablet 4 mg PO BID #180 tabs 06/13/20 06/19/22 losartan 50 mg tablet 50 mg PO DAILY #90 tab-caps 06/13/20 06/19/22 metformin 1,000 mg tablet 1,000 mg PO BID #180 tabs 06/13/20 06/19/22 (Glucophage) metoprolol tartrate 25 mg tablet 25 mg PO BID #180 tabs 06/13/20 06/19/22 omeprazole 20 mg capsule,delayed 20 mg PO DAILY #90 caps 06/13/20 06/19/22 release rivaroxaban 20 mg tablet 20 mg PO QPM #90 tabs 10/04/20 06/19/22 nine-eleven 1 tab PO BID 04/27/21 10/13/22 blood sugar diagnostic (OneTouch #100 ea 01/21/21 Ultra Blue Test Strip) magnesium oxide 500 mg capsule 250 - 500 mg PO DIRECTED 06/19/22 06/19/22 vardenafil 5 mg tablet 5 mg PO DIRECTED PRN 06/19/22 06/19/22 Previous Rx's Medication Instructions Recorded acetaminophen 325 mg capsule 650 mg PO Q6H PRN #30 caps 06/06/20 (Tylenol) glimepiride 4 mg tablet 4 mg PO BID #180 tabs 06/13/20 losartan 50 mg tablet 50 mg PO DAILY #90 tab-caps 06/13/20 metformin 1,000 mg tablet 1,000 mg PO BID #180 tabs 06/13/20 (Glucophage) metoprolol tartrate 25 mg tablet 25 mg PO BID #180 tabs 06/13/20 omeprazole 20 mg capsule,delayed 20 mg PO DAILY #90 caps 06/13/20 release rivaroxaban 20 mg tablet 20 mg PO QPM #90 tabs 10/04/20 blood sugar diagnostic (OneTouch #100 ea 01/21/21 Ultra Blue Test Strip) Allergies Allergy/AdvReac Type Severity Reaction Status Date / Time bee venom protein (honey bee) Allergy Swelling/Ed Verified 06/19/22 11:44 lena gabapentin AdvReac Severe Severe Verified 06/19/22 11:44 confusion Nmjomyu-MCS-[id number] Reductase AdvReac Severe Muscle and Verified 06/19/22 11:44 Inhibitor joint pain [Gemkefw-Tld-Ebu Reductase Inhibitor] tetanus and diphtheria AdvReac Severe Confused Verified 06/19/22 11:44 toxoids General Stated Complaint: FlankPain KAREEM: 3 Review of Systems All systems reviewed & are unremarkable except as noted in HPI and below PFSH All Active Problems (Updated 06/19/22 @ 15:04 by SAMSON Watts) Acute flank pain (Acute) Left low back pain (Acute) Paroxysmal atrial fibrillation (Acute) Left inguinal hernia (Acute) Stable angina (Acute) Leg cramps (Acute) Diabetic neuropathy, type II diabetes mellitus (Acute) Diabetes (Chronic) Medical History (Updated 06/19/22 @ 15:04 by SAMSON Watts) HTN (hypertension) Left wrist sprain Myocardial infarction 2006 F/U with Dr. Shon layne Surgical History (Updated 06/06/20 @ 10:08 by Lorena Coronel MD) Appendectomy cardiac stent x1 History of umbilical hernia repair Open Carpal Tunnel release (~2011) right Family History (Updated 12/03/20 @ 08:08 by Francie Mace) Mother No problems noted. Father No problems noted. Son No problems noted. Son No problems noted. Social History (Updated 11/30/20 @ 15:06 by Carmen Cody) Smoking/Tobacco Use Status: Former Tobacco Use tobacco type: cigarettes Quit Date: 09/07/01 Tobacco: How many years used: 40 Second Hand Exposure: Yes Smoking risk assessment performed?: Yes Alcohol Intake: current Alcohol Intake frequency: a few times a month Alcohol type: beer and hard liquor Drug use: Never Substance use type: does not use Details: 2 beers thursday night Caregiver/Support person: Yes Household members: spouse Housing: house Communication Needs: Hard of Hearing Do you need help understanding health information?: Often Pets and animals: No Sexually active: Yes Do you think of yourself as: straight/heterosexual Current gender identity: male What is your relationship status?: How often do you talk on the phone with friends or family?: once per week How often do you get together with friends or relatives?: once per week How often do you attend zoroastrianism or baptism services?: decline to answer Do you belong to any clubs or organized social groups?: yes Panel score (0-1 are the most socially isolated patients): 2 What type of physical activity do you participate in: decline to answer Duration: decline to answer Frequency: decline to answer Kady/Jainism: Yazdanism Special kady needs: No Seatbelt use: always Do you feel safe at home: Yes Do you feel safe in your relationship?: Yes Exam Const General: cooperative, comfortable and no acute distress Orientation: alert and oriented x3 Eyes Pupils: PERRL Resp Effort & Inspection: normal respiratory effort Auscultation: clear to auscultation bilaterally Cardio Rate: regular rate Rhythm: regular rhythm Other: distal pulses intact GI Other: Mild left flank tenderness Skin General skin exam: no rashes or lesions noted Neuro General: patient alert and patient oriented x3 Course Vital Signs Vital signs: Vital Signs Temperature 36.4 C L 06/19/22 11:38 Pulse 63 06/19/22 11:38 Respiratory Rate 20 06/19/22 11:38 Blood Pressure 142/82 H 06/19/22 11:38 Pulse Oximetry 99 06/19/22 11:38 Temperature 36.4 C L 06/19/22 11:38 Temperature Source Skin 06/19/22 11:38 Pulse 63 06/19/22 11:38 Respiratory Rate 20 06/19/22 11:38 Respiratory Effort 06/19/22 11:52 Blood Pressure 142/82 H 06/19/22 11:38 Blood Pressure Position Sitting 06/19/22 11:38 Pulse Oximetry 99 06/19/22 11:38 Oxygen Delivery Method Room Air 06/19/22 11:38 Oxygen Flow Rate 0 06/19/22 11:38 Pain Level 0 06/19/22 11:38 Comment 06/19/22 11:38 PAWSS Have you Been Recently Intoxicated or Drunk Within the Last 30 days?: No Have you Ever Experienced Previous Episodes of Alcohol Withdrawal?: No Have you ever Experienced Withdrawal Seizures?: No Have you ever Experienced Delirium Tremens(DT)s?: No Have you ever undergone Alcohol Rehabilitation Treatment (i.e, inpt ot outpatient treatment programs)?: No Have you ever Experienced Blackouts?: No Have you ever Combined Alcohol with other Downers within the last 90 days?: No Have you ever Combined Alcohol with any other Substance of Abuse during the last 90 days?: No Positive Blood Alcohol level on Presentation? [PCS.BAL]: No Evidence of Increased Autonomic Activity (i.e. HR>120, tremor, sweating, agitation, nausea)?: No Result: 0
[2022-06-19 13:00] LABS: Abs Immature Grans 0.04 10^3/uL (0.0-0.06); Absolute Basophil Count 0.06 10^3/uL (0.0-0.2); Absolute Lymphocyte Count 2.58 10^3/uL (1.2-3.4); Absolute Monocyte Count 0.76 10^3/uL (0.1-0.8); Absolute Neutrophil Count 3.98 10^3/uL (1.2-6.7); Basophils % 0.8; Eosinophils % 2.6; HGB 13.9 g/dL (13.5-17.5); Immature Grans % 0.5; Lymphocytes % 33.9; MCH 31.3 pg (27.0-33.0); MCHC 33.1 % (32.0-36.0); MCV 95 fL (80-95); MPV 9.4 fL (8.0-11.0); Neutrophils % 52.2; Platelet Count 202 10^3/uL (130-400); RBC 4.44 10^6/uL (4.36-5.78); RDW 11.8 % (11.8-14.1); RDW-SD 40.9 fL; WBC 7.62 10^3/uL (4.4-10.8)
[2022-06-19 13:15] LABS: ALT 24 U/L (16-63); AST 19 U/L (15-37); Albumin 4.2 g/dL (3.4-5.0); Alkaline Phosphatase 74 U/L (46-116); Anion Gap 9.3 mmol/L (3-11); BUN 21 mg/dL (7-18); Bilirubin, Total 0.5 mg/dL (0.2-1.0); CO2 24.7 mmol/L (21.0-32.0); CREATININE 1.3 mg/dL (0.70-1.30); Calcium 9.3 mg/dL (8.5-10.1); Chloride 102 mmol/L (98-107); Estimated GFR 55.88 (mL/min/1.73m2); Glucose 137 mg/dL (74-106); Lipase 64 U/L (73-393); Potassium 4.3 mmol/L (3.5-5.1); Sodium 136 mmol/L (136-145); Total Protein 8.1 g/dL (6.4-8.2)
[2022-06-19] MEDS: Omnipaque 350 MG/ML 500 ML BTL-Imaging package 100 ML IJ (14:21)
[2022-06-19 15:17] LABS: Bilirubin Negative (Negative); Blood Negative (Negative); Clarity Clear (Clear); Glucose Negative (Negative); Ketones Negative (Negative); Leukocyte Esterase Negative (Negative); Nitrite Negative (Negative); Urobilinogen 0.2 EU/dL (Up TO 0.2)
== END 2022-06-19 15:16 | disposition home or self-care (01) ==
PROVIDERS: Emergency Provider Physician Assistant
DX: R10.9 Unspecified abdominal pain (principal); I10 Essential (primary) hypertension; Z90.49 Acquired absence of other specified parts of digestive tract
CPT/HCPCS: 36415; 80053; 83690; 99285; 74177; 81003; 85025; 99282

== ENCOUNTER → 2022-07-14 01:32 | Outpatient (CLI) | payer MEDICARE, SELFPAY ==
--- NOTE | 2022-07-14 09:15 | DI.NM_ITS ---
APPROVED REPORT Exam: Pharmacologic Patient Location: Out-Patient Room/Bed: Stress Nurse: Lavinia Brunson RN Ordering Provider:MICKIVONNE GODFREY, Contact Number: [phone] BMI: 28.69 Baseline Rhythm: 1st degree AV block, SR Indications: Shortness of breath Medical History Medical History: Paroxysmal afib, stable angina, [place], HTN, DM II, Inguinal hernia, HLD Cardiac Medications: Metoprolol, Metformin, Mag. Oxide, Losartan, Rivaroxaban, Glimepiride Cardiac Risk Factors: +Family history, HTN, HLD, CVD, DM II, previous smoker Previous Cardiac Procedures: Stent x1 (15 years ago) Pretest Chest Pain Characteristics: None Exercise History: Sedentary Physical Disabilities: Back pain Lung Sounds: Clear Heart Sounds: Regular Stress Test Details Test: Pharmacologic stress was paired with low level exercise. Reason for pharmacologic stress test: physical limitation. Nuclear Acquisition: Rest Tc-99m/Stress Tc-99m 1 day Rest Isotope: Tc-99m Sestamibi. Dose: 9.0 ml Date: 07/14/2022 Injection Time: 9:15 am Stress Isotope: Tc-99m Sestamibi. Dose: 30.0 ml Date: 07/14/2022 Injection Time: 11:25 am HR Resting HR Supine: 61 bpm Max Heart Rate (APMHR): 141.251083 bpm Resting HR Standin bpm Target HR (85% APMHR): 119.074519 bpm Max HR Achieved: 105 bpm % of APMHR: 74.47 Recovery HR: 72 bpm BP Resting BP Supine: 132/88 mmHg Resting BP Standin/88 mmHg Max BP: 164/78 mmHg Recovery BP: 144/74 mmHg ECG Resting ECst degree AV block Stress ECG: Sinus Tachycardia, 1st degree AV block ST Change: No significant ST segment changes noted Arrhythmia: PAC Recovery ECst degree AV block Recovery ST Change: No significant ST segment changes noted Recovery Arrhythmia: PAC's Clinical Stress Symptoms: None Rate Pressure Product: [id number] Stress ECG Conclusion 1. The resting electrocardiogram was within normal limits 2. Patient underwent pharmacologic stress using regadenoson 3. Peak heart rate achieved was 74% of predicted for age 4. The electrocardiographic portion of the test was nondiagnostic due to inadequate heart rate 5. See MPI report Stress Test Summary STAGE HR BP SpO2 Symptoms NOTES Supine 61 132/88 Standing 68 142/88 1 min post Lexiscan injection 100 164/78 3 min post Lexiscan injection 79 164/70 6 min post Lexiscan injection 72 144/74 Patient tolerated stress test well. Patient walked on the treadmill at 0.7 mph for 2 minutes, Lexisca n injection was given and patient proceeded to walk another 2 minutes on the treadmill before ambulat ing to the stretcher for the rest of recovery. Patient denied any symptoms before, during, or after s tress portion of the test. MPI Conclusion There is a small area of inferobasal infarction. There is no ischemia EF is 48%. The inferobasal segment is hypocontractile Radiologist Interpretation Radiologist Interpretation by: John Rock MD Interpretation Date/Time: 07/15/2022 17:01:41
[2022-07-14] MEDS: Regadenoson 0.4 MG/5 ML SYR IVP (12:01)
== END ==
PROVIDERS: PCP Nurse Practitioner Family; Visit Provider Nurse Practitioner Family
DX: R06.02 Shortness of breath (principal)
CPT/HCPCS: 78452; 93016; 93018; 93017; J2785

== ENCOUNTER → 2022-08-04 09:37 | Outpatient (BNVA) | payer MEDICARE, SELFPAY | PROVIDERS: PCP Nurse Practitioner Family; Referring Provider Nurse Practitioner Family; Visit Provider Urology | DX: N20.0 Calculus of kidney (principal) | CPT/HCPCS: 99214 ==

== ENCOUNTER 2022-08-07 16:04 | Outpatient (REF) | payer MEDICARE, SELFPAY ==
[2022-08-07 19:22] LABS: Iron 22 ug/dL (65-175); Total Iron Binding Capacity 279 ug/dL (250-450); Transferrin Sat 8 % (20-55)
[2022-08-07 19:32] LABS: ALT 15 U/L (16-63); AST 16 U/L (15-37); Albumin 3.5 g/dL (3.4-5.0); Alkaline Phosphatase 81 U/L (46-116); Bilirubin, Direct 0.1 mg/dL (0.0-0.2); Bilirubin, Total 0.4 mg/dL (0.2-1.0); Total Protein 7.9 g/dL (6.4-8.2); Uric Acid 6.2 mg/dL (3.5-7.2)
[2022-08-07 20:00] LABS: Ferritin 108 ng/mL (26-388)
== END 2022-08-07 16:05 | disposition home or self-care (01) ==
LOC: NCHCN 16:04
PROVIDERS: PCP Nurse Practitioner Family; Visit Provider Internal Medicine
DX: M10.9 Gout, unspecified (principal); G25.81 Restless legs syndrome
CPT/HCPCS: 80076; 82728; 83540; 83550; 84550

== ENCOUNTER 2023-03-25 19:01 | Outpatient (REF) | payer MEDICARE, SELFPAY ==
[2023-03-25 20:05] LABS: Abs Immature Grans 0.04 10^3/uL (0.0-0.06); Absolute Basophil Count 0.07 10^3/uL (0.0-0.2); Absolute Eosinophil Count 0.28 10^3/uL (0.0-0.7); Absolute Lymphocyte Count 2.47 10^3/uL (1.2-3.4); Absolute Monocyte Count 0.77 10^3/uL (0.1-0.8); Absolute Neutrophil Count 3.81 10^3/uL (1.2-6.7); Basophils % 0.9; Eosinophils % 3.8; HCT 42.5 % (40.0-50.0); HGB 13.7 g/dL (13.5-17.5); Immature Grans % 0.5; Lymphocytes % 33.2; MCH 31.1 pg (27.0-33.0); MCHC 32.2 % (32.0-36.0); MCV 96 fL (80-95); MPV 9.5 fL (8.0-11.0); Monocytes % 10.3; Neutrophils % 51.3; Platelet Count 233 10^3/uL (130-400); RBC 4.41 10^6/uL (4.36-5.78); RDW 13.6 % (11.8-14.1); RDW-SD 48.6 fL; WBC 7.44 10^3/uL (4.4-10.8)
[2023-03-25 20:50] LABS: ALT 18 U/L (16-63); AST 25 U/L (15-37); Alkaline Phosphatase 76 U/L (46-116); Anion Gap 10.7 mmol/L (3-11); BUN 29 mg/dL (7-18); Bilirubin, Total 0.6 mg/dL (0.2-1.0); CO2 25.3 mmol/L (21.0-32.0); CREATININE 1.5 mg/dL (0.70-1.30); Calcium 9.4 mg/dL (8.5-10.1); Chloride 107 mmol/L (98-107); Estimated GFR 46.77 (mL/min/1.73m2); Glucose 100 mg/dL (74-106); Potassium 4.4 mmol/L (3.5-5.1); Sodium 143 mmol/L (136-145); TSH 4.19 uIU/mL (0.36-3.74); Total Protein 7.7 g/dL (6.4-8.2)
== END 2023-03-25 19:02 | disposition home or self-care (01) ==
LOC: NCHCN 19:01
PROVIDERS: PCP Nurse Practitioner Family; Visit Provider Internal Medicine
DX: R63.4 Abnormal weight loss (principal)
CPT/HCPCS: 80053; 84443; 85025

== ENCOUNTER 2023-10-14 12:59 | Outpatient (REF) | payer OTHER, SELFPAY ==
[2023-10-14 20:10] LABS: HCT 42.6 % (40.0-50.0); HGB 14.1 g/dL (13.5-17.5); MCH 31.6 pg (27.0-33.0); MCHC 33.1 % (32.0-36.0); MCV 96 fL (80-95); Platelet Count 186 10^3/uL (130-400); RBC 4.46 10^6/uL (4.36-5.78); RDW 12.2 % (11.8-14.1); RDW-SD 42.5 fL; WBC 7.06 10^3/uL (4.4-10.8)
[2023-10-14 20:17] LABS: Anion Gap 9.1 mmol/L (3-11); BUN 23 mg/dL (7-18); CO2 28.9 mmol/L (21.0-32.0); CREATININE 1.3 mg/dL (0.70-1.30); Calcium 9.5 mg/dL (8.5-10.1); Chloride 103 mmol/L (98-107); Estimated GFR 55.53 (mL/min/1.73m2); Glucose 216 mg/dL (74-106); Potassium 4.5 mmol/L (3.5-5.1); Sodium 141 mmol/L (136-145)
[2023-10-14 21:13] LABS: Hemoglobin A1C 8.5 % (<5.7)
== END 2023-10-14 13:00 | disposition home or self-care (01) ==
LOC: NCHCN 12:59
PROVIDERS: PCP Nurse Practitioner Family; Visit Provider Internal Medicine
DX: E11.40 Type 2 diabetes mellitus with diabetic neuropathy, unspecified (principal); I48.0 Paroxysmal atrial fibrillation; Z79.01 Long term (current) use of anticoagulants; I10 Essential (primary) hypertension; I25.10 Atherosclerotic heart disease of native coronary artery without angina pectoris
CPT/HCPCS: 80048; 85027; 83036

== ENCOUNTER 2023-11-04 09:49 | Emergency (ER) | payer OTHER, SELFPAY ==
[2023-11-04 09:55] VITALS: BP 148/59; PULSE 83; RESP 20; TEMP 36.4; O2SAT 96
--- NOTE | 2023-11-04 10:29 | W.ED.GENAD ---
Discharge Plan Disposition Patient Disposition: Home Condition: Fair Discharge Details Clinical Impression: Trochanteric bursitis of left hip Primary Care Provider: Marci Guerrero ED Provider: Caro Bowles Home Meds and New Rx's Prescriptions: New lidocaine 5 % adhesive patch,medicated 1 patch topical DAILY Qty: 15 0RF Rx Instructions: leave on most painful area for up to 12 hrs naproxen 375 mg tablet,delayed release (DR/EC) 375 mg PO BID Qty: 10 0RF Rx Instructions: take with food methocarbamol 750 mg tablet 750 mg PO QID PRNQty: 30 0RF Continued cyanocobalamin (vitamin B-12) [Vitamin B-12] 1,000 MCG tablet 1,000 mcg PO DAILY Qty: 1 glimepiride 4 mg tablet 4 mg PO BID Qty: 180 3RF losartan 50 mg tablet 50 mg PO DAILY Qty: 90 3RF metoprolol tartrate 25 mg tablet 25 mg PO BID Qty: 180 3RF omeprazole 20 mg capsule,delayed release(DR/EC) 20 mg PO DAILY Qty: 90 3RF (DME) OneTouch Ultra Blue Test Strip Strip See Rx Instructions .ROUTE .MEDSUPPLY Qty: 100 3RF Patient Comments: pt. states he tests it every couple of weeks Rx Instructions: test once/day glucosamine sulfate 2KCl 1,000 MG tablet 1 tab PO DAILY diphenhydramine-acetaminophen [Acetaminophen PM] 25-500 mg Tablet 2 tab PO HS PRN acetaminophen [Tylenol] 325 mg capsule 650 mg PO Q6H PRNQty: 30 0RF vardenafil 5 mg Tablet 5 mg PO DIRECTED PRN magnesium oxide 500 mg capsule 250 - 500 mg PO DIRECTED Rx Instructions: 250mg qam 500mg qpm metformin 1,000 mg tablet 1,000 mg PO ONCE Discharge Instructions Instructions: Low Back Strain (ED) Additional Instructions: Please take your medication as prescribed Naprosyn for 5 days with food in your stomach You should increase your omeprazole to 40 mg daily while taking the naproxen Use lidocaine patch on in the morning off in the evening if helpful Can use heat or ice to the area if helpful Follow-up with your primary care provider for recheck and for potential physical therapy consultation if symptoms not improving Referrals: Marci Guerrero [Primary Care Provider] - Discharge Data Discharge Date/Time-TO BE ENTERED AT DEPARTURE: 11/04/23 18:02 HPI General Mode of arrival: ambulatory. Date/Time Provider Initiated Documentation: 11/04/23 10:08. Limitations to Documentation: no limitations. Information obtained by: patient. HPI Narrative: Patient presents for evaluation of nontraumatic hip pain that started 1 week ago. Saw his primary care provider on Thursday and was prescribed a muscle relaxer which has not helped his symptoms. He has been using acetaminophen with no improvement in his symptoms. He denies any numbness or tingling. He has not had imaging of the area. He has full range of motion of his hip with no pain. His pain is only present with weightbearing Related Data Home Medications Medication Instructions Recorded Confirmed glucosamine sulfate 2KCl 1,000 mg 1 tab PO DAILY 02/07/16 11/04/23 tablet cyanocobalamin (vitamin B-12) 1,000 mcg PO DAILY ##1 06/11/16 11/04/23 1,000 mcg tablet (Vitamin B-12) diphenhydramine 25 2 tab PO HS PRN 06/05/20 11/04/23 mg-acetaminophen 500 mg tablet (Acetaminophen PM) acetaminophen 325 mg capsule 650 mg (2 x 325 mg) PO Q6H PRN #30 06/06/20 11/04/23 (Tylenol) caps glimepiride 4 mg tablet 4 mg PO BID #180 tabs 06/13/20 11/04/23 losartan 50 mg tablet 50 mg PO DAILY #90 tab-caps 06/13/20 11/04/23 metoprolol tartrate 25 mg tablet 25 mg PO BID #180 tabs 06/13/20 11/04/23 omeprazole 20 mg capsule,delayed 20 mg PO DAILY #90 caps 06/13/20 11/04/23 release blood sugar diagnostic (OneTouch #100 ea 01/21/21 11/04/23 Ultra Blue Test Strip) magnesium oxide 500 mg capsule 250 - 500 mg PO DIRECTED 06/19/22 11/04/23 vardenafil 5 mg tablet 5 mg PO DIRECTED PRN 06/19/22 11/04/23 lidocaine 5 % topical patch 1 patch topical DAILY #15 ea 11/04/23 metformin 1,000 mg tablet 1,000 mg PO ONCE 11/04/23 11/04/23 methocarbamol 750 mg tablet 750 mg PO QID PRN #30 tabs 11/04/23 naproxen 375 mg tablet,delayed 375 mg PO BID #10 tabs 11/04/23 release Previous Rx's Medication Instructions Recorded acetaminophen 325 mg capsule 650 mg (2 x 325 mg) PO Q6H PRN #30 06/06/20 (Tylenol) caps glimepiride 4 mg tablet 4 mg PO BID #180 tabs 06/13/20 losartan 50 mg tablet 50 mg PO DAILY #90 tab-caps 06/13/20 metoprolol tartrate 25 mg tablet 25 mg PO BID #180 tabs 06/13/20 omeprazole 20 mg capsule,delayed 20 mg PO DAILY #90 caps 06/13/20 release blood sugar diagnostic (OneTouch #100 ea 01/21/21 Ultra Blue Test Strip) lidocaine 5 % topical patch 1 patch topical DAILY #15 ea 11/04/23 methocarbamol 750 mg tablet 750 mg PO QID PRN #30 tabs 11/04/23 naproxen 375 mg tablet,delayed 375 mg PO BID #10 tabs 11/04/23 release Allergies Allergy/AdvReac Type Severity Reaction Status Date / Time atorvastatin Allergy Verified 08/04/22 09:52 bee venom protein (honey bee) Allergy Swelling/Ed Verified 08/04/22 09:52 lena gabapentin AdvReac Severe Severe Verified 08/04/22 09:52 confusion Vzzoosl-PWV-NoG Reductase AdvReac Severe Muscle and Verified 08/04/22 09:52 Inhibitor joint pain [Tdnwapr-Eep-Wxf Reductase Inhibitor] tetanus and diphtheria AdvReac Severe Confused Verified 08/04/22 09:52 toxoids General Stated Complaint: Orthopedic KAREEM: 4 Review of Systems All systems reviewed & are unremarkable except as noted in HPI and below Exam Const General: cooperative, healthy appearing, comfortable and no acute distress Nutritional Appearance: average body habitus Orientation: alert, awake and oriented x3 HENMT Head: normal to inspection, normocephalic and atraumatic Face and sinus: normal facial exam Mouth: oral mucosae normal Chest Chest: normal inspection of the chest Resp Effort & Inspection: normal respiratory effort Course Vital Signs Vital signs: Vital Signs Temperature 36.4 C L 11/04/23 09:55 Pulse 83 11/04/23 09:55 Respiratory Rate 20 11/04/23 09:55 Blood Pressure 148/59 H 11/04/23 09:55 Pulse Oximetry 96 02/28/24 09:55 Temperature 36.4 C L 11/04/23 09:55 Temperature Source Oral 11/04/23 09:55 Pulse 83 11/04/23 09:55 Respiratory Rate 20 11/04/23 09:55 Respiratory Effort Normal 11/04/23 10:20 Blood Pressure 148/59 H 11/04/23 09:55 Blood Pressure Position Right Lateral 11/04/23 09:55 Pulse Oximetry 96 11/04/23 09:55 Oxygen Delivery Method Room Air 11/04/23 09:55 Oxygen Flow Rate 0 11/04/23 09:55 Pain Level 0 11/04/23 10:20 Comment 3x 500mg APAP this morning 11/04/23 09:55 Medical Decision Making Patient presents for pain in his left hip. Able to full range of motion no groin pain. No trauma. Took muscle relaxers with no improvement in his symptoms has been using acetaminophen Given Toradol 15 mg IV. Plain films of the hip and pelvis obtained and no acute findings. IV will be established to CT to further evaluate hip. He is on blood thinners so concern for possible hematoma. Will give 1 L of IV fluid and 1000 mg of acetaminophen while awaiting CT. Routine CBC and CMP will be obtained prior to Scanning. Report and care of patient signed off to Dr. Quintero please see her note but in brief she did evaluate the patient and patient was given prednisone 40 mg lidocaine patch and IV morphine. I did return and resume care of patient and patient has been now reambulated and feeling better. He was prepared for discharge but while awaiting his paperwork had a report of increased pain and was unable to ambulate. He was given an additional dose of Toradol 15 mg at this time with Flexeril 10 mg orally. Physical therapy consultation and patient was unable to be safely reambulating refusing to get up secondary to the pain. Order placed for LS-spine and Valium 2 mg as needed. Patient's report has been handed off to hospitalist services for observation and admission for intractable pain unable to safely be reambulated Apparently patient declined LS-spine walking out of the radiology department. I later found out he declined admission also and was discharged to home as originally planned Medical Records Medical records reviewed: Yes I reviewed the patient's medical records. Lab Data Lab results reviewed: Yes I reviewed the patient's lab results. Labs: Laboratory Tests Range/Units 11/04/23 12:40 WBC (4.4-10.8) 10^3/uL 9.27 RBC (4.36-5.78) 10^6/uL 4.82 Hgb (13.5-17.5) g/dL 15.4 Hct (40.0-50.0) % 45.6 MCV (80-95) fL 95 MCH (27.0-33.0) pg 32.0 MCHC (32.0-36.0) % 33.8 RDW (11.8-14.1) % 12.8 Plt Count (130-400) 10^3/uL 230 MPV (8.0-11.0) fL 9.4 Immature Gran % 0.5 Neutrophils % 72.0 Lymphocytes % 18.4 Monocytes % 8.0 Eosinophils % 0.6 Basophils % 0.5 Nucleated RBC % (0.0-0.3) % 0.0 Absolute Neutrophils (1.2-6.7) 10^3/uL 6.66 Absolute Lymphocytes (1.2-3.4) 10^3/uL 1.71 Absolute Monocytes (0.1-0.8) 10^3/uL 0.74 Absolute Eosinophils (0.0-0.7) 10^3/uL 0.06 Absolute Basophils (0.0-0.2) 10^3/uL 0.05 Sodium (136-145) mmol/L 143 Potassium (3.5-5.1) mmol/L 4.1 Chloride (98-107) mmol/L 107 Carbon Dioxide (21.0-32.0) mmol/L 23.0 Anion Gap (3-11) mmol/L 13.0 H BUN (7-18) mg/dL 28 H Creatinine (0.70-1.30) mg/dL 1.4 H Est GFR (CKD-EPI 2020) (mL/min/1.73m2) 50.81 Glucose (74-106) mg/dL 231 H Calcium (8.5-10.1) mg/dL 9.5 Quality:[facility] Health Related Social Needs: No Data to Display PFSH All Active Problems (Updated 11/04/23 @ 16:54 by Caro Bowles NP) Trochanteric bursitis of left hip (Acute) CAD (coronary artery disease) (Chronic) History of coronary artery stent placement (Chronic) Essential hypertension (Acute) Hyperlipidemia (Acute) GERD (gastroesophageal reflux disease) (Chronic) Smoker (Acute) Anemia (Chronic) Rash (Acute) Erectile dysfunction (Acute) Low back pain (Acute) Hematuria (Acute) Nephrolithiasis (Chronic) SOB (shortness of breath) (Acute) Left low back pain (Acute) Paroxysmal atrial fibrillation (Acute) Left inguinal hernia (Acute) Stable angina (Acute) Leg cramps (Acute) Diabetic neuropathy, type II diabetes mellitus (Acute) Diabetes (Chronic) Medical History (Updated 11/04/23 @ 16:54 by Caro Bowles NP) Left wrist sprain Myocardial infarction 2006 F/U with Dr. Shon layne HTN (hypertension) Surgical History (Updated 07/29/22 @ 09:51 by Mariana Owen RN) History of umbilical hernia repair cardiac stent x1 Open Carpal Tunnel release (~2011) right Appendectomy Family History (Updated 12/03/20 @ 08:08 by Francie Mace) Mother No problems noted. Father No problems noted. Son No problems noted. Son No problems noted. Social History (Updated 11/30/20 @ 15:06 by Carmen Cody) Smoking/Tobacco Use Status: Former Tobacco Use tobacco type: cigarettes Quit Date: 09/07/01 Tobacco: How many years used: 40 Second Hand Exposure: Yes Smoking risk assessment performed?: Yes Alcohol Intake: current Alcohol Intake frequency: a few times a month Alcohol type: beer and hard liquor Drug use: Never Substance use type: does not use Details: 2 beers thursday night Caregiver/Support person: Yes Household members: spouse Housing: house Communication Needs: Hard of Hearing Do you need help understanding health information?: Often Pets and animals: No Sexually active: Yes Do you think of yourself as: straight/heterosexual Current gender identity: male What is your relationship status?: How often do you talk on the phone with friends or family?: once per week How often do you get together with friends or relatives?: once per week How often do you attend buddhism or hinduism services?: decline to answer Do you belong to any clubs or organized social groups?: yes Panel score (0-1 are the most socially isolated patients): 2 What type of physical activity do you participate in: decline to answer Duration: decline to answer Frequency: decline to answer Kady/Faith: Mandaeism Special kady needs: No Seatbelt use: always Do you feel safe at home: Yes Do you feel safe in your relationship?: Yes
--- NOTE | 2023-11-04 10:30 | DI.RAD_ITS ---
Exam(s) XR HIP LT COMPLETE AP PELVIS EXAM: XR HIP LT COMPLETE AP PELVIS CLINICAL HISTORY: non traumatic pain. TECHNIQUE: 2D digital imaging was performed. Two views COMPARISON: No exams were available for comparison FINDINGS: BONES: No acute fracture is present. No bony destructive lesion is seen. JOINTS: No dislocation present. The hip joint spaces are maintained. Acetabular spurring noted bila terally. Mild degenerative changes in the SI joints. Some bony bridging across the pubic symphysis. SOFT TISSUE: Normal. IMPRESSION: No acute abnormality. DATA REPOSITORY: RADIATION DOSE DELIVERED:
[2023-11-04] MEDS: Ketorolac 15 MG/ML VIAL IM (11:11)
[2023-11-04] MEDS: Normal Saline 1,000 ML 1000 ML IV (12:45)
[2023-11-04] MEDS: ACETAMINOPHEN 1,000 MG/100 ML BTL 400 MG IVPB (12:46)
[2023-11-04 12:47] LABS: Abs Immature Grans 0.05 10^3/uL (0.0-0.06); Absolute Basophil Count 0.05 10^3/uL (0.0-0.2); Absolute Eosinophil Count 0.06 10^3/uL (0.0-0.7); Absolute Lymphocyte Count 1.71 10^3/uL (1.2-3.4); Absolute Monocyte Count 0.74 10^3/uL (0.1-0.8); Absolute Neutrophil Count 6.66 10^3/uL (1.2-6.7); Basophils % 0.5; Eosinophils % 0.6; HCT 45.6 % (40.0-50.0); HGB 15.4 g/dL (13.5-17.5); Immature Grans % 0.5; Lymphocytes % 18.4; MCHC 33.8 % (32.0-36.0); MCV 95 fL (80-95); MPV 9.4 fL (8.0-11.0); Platelet Count 230 10^3/uL (130-400); RBC 4.82 10^6/uL (4.36-5.78); RDW 12.8 % (11.8-14.1); RDW-SD 44.6 fL; WBC 9.27 10^3/uL (4.4-10.8)
[2023-11-04 13:01] LABS: BUN 28 mg/dL (7-18); CREATININE 1.4 mg/dL (0.70-1.30); Calcium 9.5 mg/dL (8.5-10.1); Chloride 107 mmol/L (98-107); Estimated GFR 50.81 (mL/min/1.73m2); Glucose 231 mg/dL (74-106); Potassium 4.1 mmol/L (3.5-5.1); Sodium 143 mmol/L (136-145)
[2023-11-04] MEDS: Omnipaque 350 MG/ML 100 ML BTL IJ (13:37)
[2023-11-04] MEDS: Normal Saline - Diluent 50 ML VIAL IJ (13:41)
--- NOTE | 2023-11-04 13:41 | DI.CT_ITS ---
Exam(s) CT LOWER EXTREMITY LT W EXAM: CT LOWER EXTREMITY LT W CLINICAL HISTORY: left hip pain, non traumatic. TECHNIQUE: Imaging Protocol: Axial computed tomography images with coronal and sagittal reformatted images were created and reviewed. CONTRAST MATERIAL: Intravenous: Omnipaque 350. Contrast Volume: In 99 ML COMPARISON: No exams were available for comparison FINDINGS: Bones: The osseous structures and articular surfaces are intact. Bony alignment is satisfactory. N o cellulitic or osteomyelitic changes are identified. There are mild degenerative changes seen in th e left hip. No lytic or sclerotic lesions are identified. Soft Tissues: No soft tissue mass or focal fluid collection is seen. No findings to suggest a hemato ma are appreciated. Enhancement: No abnormal enhancement is identified. IMPRESSION: 1. No acute fracture or dislocation. No evidence of a hematoma. 2. Findings were discussed with Dr. Foster at 2:50 p.m. on 11/04/2023. RADIATION DOSE DELIVERED: 243.58mGy.cm Total DLP 243.58mGy.cm Total DLP DATA REPOSITORY: All CT scans at this facility are submitted to the National Radiology Data Registry (NRDR) Dose Index Registry (DIR) with the [employer] (ACR). RADIATION OPTIMIZATION: All CT scans at this facility use at least one of these dose optimization te chniques: automated exposure control; mA and/or kV adjustment per patient size (includes targeted exa ms where dose is matched to clinical indication); or iterative reconstruction.
--- NOTE | 2023-11-04 15:00 | W.EDPROG ---
Date of service: 11/04/23 Time of Service: 13:00 Medical Decision Making Assumed care of patient at 1300. At that time he was awaiting results of imaging. Brief history of present illness: 82-year-old gentleman presents for evaluation of pain to right hip and lateral leg. Pain started several days ago. Denies any falls or injuries. No numbness or tingling. No loss of bowel or bladder function. No saddle anesthesia. He was seen at urgent care and given a muscle relaxant. He states that that is not helping at all. He does not have any pain if he is laying in bed. If he stands he starts having pain in his back that radiates down his left lateral leg. He has used a walker to get around for the last 2 days. He states once he stands the pain becomes intense and it is difficult to ambulate. Back exam: + Left lumbosacral paraspinal tenderness, no mid-line tenderness, normal strength & sensation, negative SLR's, DTR's 2+ bilaterally Patient treated with IV morphine, Lidoderm patch, prednisone. Pain did improve significantly and he was able to ambulate. MARA Elizondo resumed care of patient. Quality:[facility] Health Related Social Needs: No Data to Display Discharge Plan Disposition Patient Disposition: Home Condition: Improving Discharge Details Clinical Impression: Left low back pain Primary Care Provider: Marci Guerrero ED Provider: Caro Bowles Home Meds and New Rx's Prescriptions: No Action cyanocobalamin (vitamin B-12) [Vitamin B-12] 1,000 MCG tablet 1,000 mcg PO DAILY Qty: 1 glimepiride 4 mg tablet 4 mg PO BID Qty: 180 3RF losartan 50 mg tablet 50 mg PO DAILY Qty: 90 3RF metoprolol tartrate 25 mg tablet 25 mg PO BID Qty: 180 3RF omeprazole 20 mg capsule,delayed release(DR/EC) 20 mg PO DAILY Qty: 90 3RF (DME) OneTouch Ultra Blue Test Strip Strip See Rx Instructions .ROUTE .MEDSUPPLY Qty: 100 3RF Patient Comments: pt. states he tests it every couple of weeks Rx Instructions: test once/day glucosamine sulfate 2KCl 1,000 MG tablet 1 tab PO DAILY diphenhydramine-acetaminophen [Acetaminophen PM] 25-500 mg Tablet 2 tab PO HS PRN acetaminophen [Tylenol] 325 mg capsule 650 mg PO Q6H PRNQty: 30 0RF vardenafil 5 mg Tablet 5 mg PO DIRECTED PRN magnesium oxide 500 mg capsule 250 - 500 mg PO DIRECTED Rx Instructions: 250mg qam 500mg qpm metformin [Glucophage] 1,000 mg tablet 1,000 mg PO ONCE
[2023-11-04] MEDS: Ondansetron 4 MG/2 ML VIAL IVP (15:49)
[2023-11-04] MEDS: MORPHine 4 MG/ML SYR IVP (15:49)
[2023-11-04] MEDS: Lidocaine 5% Patch 1 PATCH TP (15:49)
[2023-11-04] MEDS: predniSONE 20 MG TAB 40 MG PO (15:50)
[2023-11-04] MEDS: Ketorolac 15 MG/ML VIAL IVP (16:03)
--- NOTE | 2023-11-04 16:10 | PT.INIE ---
PT Notes Visit Reasons: hip pain Physical Therapy Inpatient Initial Evaluation Date: 11/04/2023 Referring Doctor: Caro Bowles NP PT Orders: PT CONSULT: Safety consult for D/C Precautions: Fall. Standard. Activity as tolerated. Patient Profile/Admitting Diagnosis: Parish is an 82-year-old male patient who presented to the ED with report of worsening L hip and lateral leg pain, difficulty with sitting and inability to walk. Findings of Hip X-ray: BONES: No acute fracture is present. No bony destructive lesion is seen. JOINTS: No dislocation present. The hip joint spaces are maintained. Acetabular spurring noted bilaterally. Mild degenerative changes in the SI joints. Some bony bridging across the pubic symphysis. SOFT TISSUE: Normal. IMPRESSION: 1.No acute abnormality. Findings of L Hip CT Scan: Bones: The osseous structures and articular surfaces are intact. Bony alignment is satisfactory. No cellulitic or osteomyelitic changes are identified. There are mild degenerative changes seen in the left hip. No lytic or sclerotic lesions are identified. Soft Tissues: No soft tissue mass or focal fluid collection is seen. No findings to suggest a hematoma are appreciated. Enhancement: No abnormal enhancement is identified. IMPRESSION: 1. No acute fracture or dislocation. No evidence of a hematoma. PMHX: All Active Problems (Updated 06/19/22 @ 15:04 by SAMSON Watts) Acute flank pain (Acute) Left low back pain (Acute) Paroxysmal atrial fibrillation (Acute) Left inguinal hernia (Acute) Stable angina (Acute) Leg cramps (Acute) Diabetic neuropathy, type II diabetes mellitus (Acute) Diabetes (Chronic) Medical History (Updated 06/19/22 @ 15:04 by SAMSON Watts) HTN (hypertension) Left wrist sprain Myocardial infarction 2006 F/U with Dr. Menendez regularly Social History/Home Situation: Lives with who has dementia. Daughter lives close and has been a goos support. Equipment Owned/DME: [employer] Subjective: Moaned and groaned about his pain on the back of the left hip. Breathing heavily. Verbalized that physical therapy and movement were not going to help him right now. Unable to sit up long enough at edge of bed due to pain. Unwilling to stand up and walk due to pain. Denied chest pain and lightheadedness throughout. Objective: General Observation: Patient significantly apprehensive about moving, anxiety over increased pain limiting ability to participate in mobility assessment. No redness, rashes, increased warmth seen in low back and all aspects of L hip. Area of localized minimal swelling noted in L lower back area that was not tender to touch. Mental Status: Alert and oriented as to person, place, time, and purpose. Able to pay attention, focus, and respond appropriately. Pain: 8-9/10 in posterior hip joint with sitting Vital Signs: Oxygen saturation WNL PALPATION: L lateral and posterior hip very tender to palpation. No tenderness in low back. Area of localized minimal swelling noted in L lower back area that was not tender to touch. ROM: Left Lower Extremity: Hip flexion limited to 90 degrees. Hip abduction limited to about 30 degrees. Knee flexion 30 degrees to 90 degrees. Knee extension -30 degrees. Ankle dorsiflexion to neutral only. Ankle plantarflexion WFL. Strength: Left Lower Extremity: Hip flexors 3-/5. Hip abductors 3-/5. Knee flexors 4-/5. Knee extensors 3-/5. Ankle dorsiflexors 4-/5. Ankle plantarflexors 4-/5. Bed Mobility/Transfers: Position of comfort is right side lying. Difficulty with sitting/lying down from sitting. Sitting tolerance less than 1 minute due to pain. Declined sitting up and getting out of bed. Gait: Refused to stand up and walk for this evaluation due to worsening pain. Balance: Static Sitting: Poor Dynamic Sitting: Unable to test due to pain Static Standing: Unable to test due to pain Dynamic Standing: Unable to test due to pain Special Tests: Mobility Limitations Standardized Measure [facility] AM-PAC 6 clicks Basic Mobility Inpatient Short Form: Raw Score: 8 CMS Score: 87% deficit Informed Consent/Education: Patient was instructed in purpose of PT consult and plan of care. Agreeable to proceed with established PT POC to achieve personal goals. Assessment: Unable to complete mobility assessment due to high pain level and high anxiety in patient. Tenderness in posterior hip and L gluteal areas was elicited without symptom provocation in the low back. Pain from weight bearing may be due to acetabular spurring although the x-ray showed spurring on B hips, patient is more symtomatic on the L side. manula pressure on the posterior aspect of the L hip worsened pain report. Lack of full range of motion evident due to pain. Will plan on re-evaluating patient tomorrow once once level of irritability of involved structures are controlled. Patient presents with clinical signs and symptoms consistent with current/admitting diagnoses that have resulted to mobility limitations, gait instability, generalized weakness, and overall ADL decline as demonstrated by the following impairment level findings: 1. Decreased strength to L hip and knee major muscle groups 2. Impaired sitting/standing balance 3. Impaired activity tolerance 4. Limitation of joint range of motion in L hip and knee 5. High anxiety level with movement and weight bearing Impairments are contributing to the following functional limitations: 1. Decline in bed mobility skills 2. Decline in transfer skills 3. Difficulty with ambulation without assistive device and physical assistance 4. Increased completion time for mobility ADL performance 5. Increased risk for falls 6. Difficulty with managing steps alone safely Patient is [place] a 44796 moderate complexity based on the following: History: 82-year-old male with past medical history as indicated above Examination: Demonstrable impairment in strength, balance, and mobility level with underlying impairments and functional limitations as exhibited above as well as deficit score of 87% utilizing the [facility] Mobility Inpatient Short Form Presentation: Evolving Decision Makin moderate complexity Goals: Goals X1 week 1. Supine-Sit independent 2. Sit-Supine independent 3. Sit-Stand independent 4. Stand-Sit independent 5. Bed-Chair independent 6. Chair-Bed independent 7. Independent gait on level surface with use of FWW device for at least 300 feet without report of pain nor dyspnea 8. Independent stair negotiation while holding onto bilateral rails for at least 5 steps without report of pain nor dyspnea 9. Independent with home exercise program 10. Good static and dynamic standing balance/tolerance Plan of Care/Treatment Plan: -1-2x/day, 7 days/week x 1 week. -Plan of care has been reviewed with the COP BREAKER providing the service under Physical Therapy direction. Initiate Physical Therapy intervention for pain management as needed, strengthening, bed mobility, transfers, gait, stairs, balance training, and use of assistive device once admitted under med surg/OBS status/level of care. -Pre-medicate for pain for sessions. DISCHARGE RECOMMENDATIONS: [] Home with no services [] [] Home with services [specify] [] Home with outpatient PT [] [] SNF for continued rehabilitation [] [] [facility] [] [] SNF versus LTC based on ability to participate and progress [] [X] PT vs SNF based on progress towards goals TREATMENT CODE/TIME: 47289 x 25 minutes for 1 unit (16:10-16:35). Thank you for the opportunity to participate in the care of this patient. Lulu Munoz PT, DPT, CLT [facility] [place], [place]
[2023-11-04] MEDS: Cyclobenzaprine 10 MG TAB PO (16:40)
--- NOTE | 2023-11-05 08:24 | NUR.NOTE ---
Accessed Pt chart to cancel the Xray that the PT refused yesterday.
--- NOTE | 2023-11-07 10:48 | NUR.NOTE ---
Accessed pt chart to determine if there is an order for the walker that was dispensed through the ED. There is no order. Nursing Note:
== END 2023-11-04 18:02 | disposition short-term general hospital (02) ==
PROVIDERS: Emergency Provider Nurse Practitioner Acute Care; PCP Nurse Practitioner Family
DX: M70.62 Trochanteric bursitis, left hip (principal); I25.2 Old myocardial infarction; I10 Essential (primary) hypertension; E11.9 Type 2 diabetes mellitus without complications; Z95.5 Presence of coronary angioplasty implant and graft; Z79.85 Long-term (current) use of injectable non-insulin antidiabetic drugs; Z79.84 Long term (current) use of oral hypoglycemic drugs
CPT/HCPCS: 123; 80048; 96361; 96372; 96374; 96375; 97162; 99285; 00123; 73502; 73701; 85025; 99284; J0131; J1885; J2270; J2405; J3490; J7512

== ENCOUNTER → 2023-11-27 10:31 | Outpatient (CLI) | payer OTHER, SELFPAY ==
--- NOTE | 2023-11-27 | DI.RAD_ITS ---
Exam(s) XR LUMBAR SPINE COMPLETE EXAM: XR LUMBAR SPINE COMPLETE CLINICAL HISTORY: LOW BACK PAIN M54.50. TECHNIQUE: 2D digital imaging was performed. COMPARISON: CT CT ABDOMEN PELVIS W from 06/19/2022 FINDINGS: Five views. No evidence of obvious acute fracture, listhesis, nor obvious pars defects. Rotoscoliosis is noted, as seen on prior abdominal CT scan of June 2022. There is asymmetric disc space narrowing at multiple levels, most prominent on the right side at L4-5 , similar to previous.. There also prominent left-sided bridging osteophytes at L1-2 and L2-3 levels . There is a subtle linear lucency in the left-sided osteophyte at L1-2 level. This most probably c orresponds to healing fracture site which is evident on CT scan of the abdomen 06/19/2022. There are no acute fractures identified. Graph sacroiliac joints appear unremarkable. IMPRESSION: Advanced multilevel degenerative changes and degenerative scoliosis. Healing/healed fracture site at the junction of the left side of L2 and bridging left-side osteophyte at this level. DATA REPOSITORY: RADIATION DOSE DELIVERED:
== END ==
PROVIDERS: PCP Nurse Practitioner Family; Visit Provider Internal Medicine
DX: M41.86 Other forms of scoliosis, lumbar region (principal)
CPT/HCPCS: 72110

== ENCOUNTER → 2024-04-14 12:48 | Outpatient (CLI) | payer OTHER, SELFPAY ==
--- NOTE | 2024-04-14 | DI.RAD_ITS ---
Exam(s) XR SHOULDER LT COMPLETE 2+V EXAM: XR SHOULDER LT COMPLETE 2+V CLINICAL HISTORY: M25.519 Pain in left shoulder. TECHNIQUE: 2D digital imaging was performed. COMPARISON: No exams were available for comparison FINDINGS: Six views: No evidence of acute fracture or dislocation of glenohumeral joint. No abnormal soft tissue calcific ations and the subacromial space is not diminished. There are moderate degenerative changes at the A C joint. Clavicle otherwise unremarkable. Bone density normal. No osseous lesions. IMPRESSION: No acute osseous findings in the left shoulder. DATA REPOSITORY: RADIATION DOSE DELIVERED:
== END ==
PROVIDERS: PCP Nurse Practitioner Family; Visit Provider Internal Medicine
DX: M25.512 Pain in left shoulder (principal)
CPT/HCPCS: 73030

== ENCOUNTER 2024-05-06 00:11 | Outpatient (CLI) | payer OTHER, SELFPAY ==
--- NOTE | 2024-05-06 | DI.MRI_ITS ---
Exam(s) MR UPPER JOINT LT WO EXAM: MR UPPER JOINT LT WO CLINICAL HISTORY: PAIN LT SHOULDER, M25.512, ? ROTATOR CUFF TEAR TECHNIQUE: Multiplanar multisequence MRI of the shoulder was performed. COMPARISON: CR XR SHOULDER LT COMPLETE 2+V from 04/14/2024 FINDINGS: MARROW:There is no evidence of fracture, Hill-Sachs deformity, nor ominous osseous lesions. GLENOHUMERAL JOINT: There is a joint effusion which also extends down the biceps tendon sheath and in to the subacromial space (see below). There are some degenerative changes in the glenohumeral joint. There is significant articular thinning over the mid-dorsal aspect of the humeral head articular grimes rface; less so anteriorly. There is a tiny femoral head osteophyte. No obvious loose intra-articular bodies although there is some synovial thickening noted anteriorly a nd posteriorly. ROTATOR CUFF MECHANISM: AC JOINT/ACROMIUM: There are significant degenerative changes in the AC joint. Downgoing osteophytes are noted at this level with with impingement.. There is also degenerative subarticular cysts on th e clavicular side of the AC joint which measures 6 x 5 mm. There is no evidence of os acromiale. Supraspinatus: There is a large high-grade tear of the supraspinatus tendon with retraction of the mu sculotendinous junction to the medial 3rd of the humeral head and there is also abnormal signal withi n the muscle belly consistent with some hemorrhage. Infraspinatus: There is also a high-grade complete tear of the infraspinatus with some retraction of the tendon also evident. Also with some hemorrhage within the infraspinatus muscle belly. Teres Minor: The teres minor or tendon is intact. However, there is some signal abnormality in the m uscle belly consistent with intramuscular tearing Subscapularis/anterior cuff: There is small area of increased signal in the insertional tendon immedi ately anterior to these lesser tuberosity. However, there is no evidence of full-thickness tear. BICEPS TENDON: Exhibits normal position within the intertubercular groove. There is fluid within the tendon sheath which is probably related to the glenohumeral joint effusion. There is some cysts sig nal abnormality within the intra-articular aspect of the biceps tendon but without full-thickness tea r. LABRUM: There is some mild increased signal in the substance of the superior labrum posterior to the biceps attachment site. The posterior labrum appears intact. Anterior labrum appears intact. There is mild increased signal in the inferior labrum. There is abnormal signal within the inferior gleno humeral ligament consistent with an element of intrasubstance tearing. However, there does not appea r to be a full-thickness IGL tear and no fluid leaking below the inferior recess. There is no eviden ce of bony Bankart lesion. There is no evidence of disruption of the anterior scapular periosteum. IMPRESSION: 1. Study interpretation is somewhat limited by lack of sagittal sequences. 2. High-grade tears of the supraspinatus and infraspinatus rotator cuff tendons with significant retr action of the tendons and signal abnormality within the muscle bellies consistent with intramuscular hemorrhage/tearing. There is a large bare area over the humeral head with continuity of fluid betwee n the glenohumeral joint space and overlying subacromial bursal space. There is approximately 1 cm c ephalad subluxation of the humeral head in the osseous glenoid. The anterior cuff-subscapularis exhi bits mild increased insertional signal but no high-grade tear. 3. No prominent labral tears but there is abnormal signal within the inferior glenohumeral ligament c onsistent with partial tearing of this structure. It is not avulsed off of its attachment sites on t he humeral neck and inferior osseous glenoid region. 4. Moderate degenerative changes in the glenohumeral joint as described above. Also significant deg enerative changes in the AC joint, including downgoing osteophytes causing element of impingement in the subacromial space. 5. Mild increased signal within the intra-articular aspect of the biceps tendon but there does not a ppear to be a high-grade tear of this structure or displacement from the intertubercular groove. The re is some fluid in the biceps tendon sheath which is continuity of glenohumeral joint fluid. DATA REPOSITORY:
== END 2024-05-06 00:31 ==
LOC: DI 00:12
PROVIDERS: PCP Nurse Practitioner Family; Visit Provider Physician Assistant
DX: M75.122 Complete rotator cuff tear or rupture of left shoulder, not specified as traumatic (principal)
CPT/HCPCS: 73221

== ENCOUNTER → 2024-05-17 08:30 | Outpatient (BNVA) | payer OTHER, SELFPAY | PROVIDERS: PCP Nurse Practitioner Family; Referring Provider Nurse Practitioner Family; Visit Provider Student in an Organized Health Care Education/Training Program | DX: M75.102 Unspecified rotator cuff tear or rupture of left shoulder, not specified as traumatic (principal); M12.812 Other specific arthropathies, not elsewhere classified, left shoulder | CPT/HCPCS: 99213 ==

== ENCOUNTER 2024-10-03 15:08 | Outpatient (REF) | payer OTHER, SELFPAY ==
[2024-10-03 19:12] LABS: HCT 43.7 % (40.0-50.0); HGB 14.4 g/dL (13.5-17.5); MCH 32.1 pg (27.0-33.0); MCV 98 fL (80-95); MPV 9.8 fL (8.0-11.0); Platelet Count 199 10^3/uL (130-400); RBC 4.48 10^6/uL (4.36-5.78); RDW 12.6 % (11.8-14.1); RDW-SD 44.8 fL; WBC 7.15 10^3/uL (4.4-10.8)
[2024-10-03 19:55] LABS: ALT 11 U/L (16-63); AST 14 U/L (15-37); Albumin 3.8 g/dL (3.4-5.0); Alkaline Phosphatase 84 U/L (46-116); Anion Gap 5.4 mmol/L (3-11); BUN 27 mg/dL (7-18); Bilirubin, Total 0.77 mg/dL (0.2-1.0); CO2 28.6 mmol/L (21.0-32.0); CREATININE 1.3 mg/dL (0.70-1.30); Calcium 9.4 mg/dL (8.5-10.1); Chloride 106 mmol/L (98-107); Estimated GFR 55.19 (mL/min/1.73m2); Glucose 161 mg/dL (74-106); Potassium 4.7 mmol/L (3.5-5.1); Sodium 140 mmol/L (136-145); TSH 5.42 uIU/mL (0.36-3.74); Total Protein 7.5 g/dL (6.4-8.2); Vitamin B12 1415 pg/mL (193-986)
== END 2024-10-03 15:09 | disposition home or self-care (01) ==
LOC: NCHCN 15:08
PROVIDERS: PCP Nurse Practitioner Family; Visit Provider Internal Medicine
DX: Z51.81 Encounter for therapeutic drug level monitoring (principal); G30.9 Alzheimer's disease, unspecified
CPT/HCPCS: 80053; 85027; 82607; 84443

== ENCOUNTER 2024-10-04 02:28 | Outpatient (CLI) | payer MEDICARE, SELFPAY ==
--- NOTE | 2024-10-04 10:30 | DI.RAD_ITS ---
Exam(s) XR CHEST 2V PA LATERAL EXAM: XR CHEST 2V PA LATERAL CLINICAL HISTORY: COPD,J44.9,DYSPNEA ON EXERTION,H/O SMOKER TECHNIQUE: 2D digital imaging was performed of the chest. Two images were obtained. PA and lateral views were obtained. COMPARISON: No exams were available for comparison FINDINGS: MEDIASTINUM: Normal. HEART: Normal. PULMONARY VASCULATURE: Normal. LUNGS: Clear. PLEURAL SPACE: No pleural effusion or pneumothorax. BONE:Within normal limits for the patient's age. OTHER FINDINGS:Normal. IMPRESSION: No acute pulmonary findings. DATA REPOSITORY: RADIATION DOSE DELIVERED:
== END 2024-10-04 02:48 ==
LOC: DI 02:28
PROVIDERS: PCP Nurse Practitioner Family; Visit Provider Internal Medicine
DX: J44.9 Chronic obstructive pulmonary disease, unspecified (principal)
CPT/HCPCS: 71046

== ENCOUNTER 2024-10-04 03:21 | Outpatient (CLI) | payer MEDICARE, SELFPAY ==
[2024-10-04] MEDS: Inhaler, Assist Device 1 EACH MC (11:03)
[2024-10-04] MEDS: Levalbuterol HFA 15 GM INH 4 PUFF IH (11:03)
--- NOTE | 2024-10-18 12:35 | W.PFT ---
Date of service: 10/04/24 Time of Service: 10:01 Pulmonary Function Test Result Indications: COPD Interpretation Spirometry: There is no airflow limitation. There is a significant bronchodilator response. Impression Normal spirometry with a bronchodilator response. Clinical Correlation therefore is recommended.
== END 2024-10-04 03:22 | disposition home or self-care (01) ==
LOC: RT 03:22
PROVIDERS: PCP Nurse Practitioner Family; Visit Provider Student in an Organized Health Care Education/Training Program
DX: J44.9 Chronic obstructive pulmonary disease, unspecified (principal)
CPT/HCPCS: 94060